=== PATIENT | male | born 1970 | race Caucasian/White ===

== ENCOUNTER 2020-01-05 10:30 | Emergency (ER) | payer OTHER ==
[2020-01-05] MEDS ORDERED: HYDROcodone/APAP 5-325MG 1 EACH TAB PO STA (10:49)
[2020-01-05] MEDS ORDERED: KETOROLAC 60 MG/2 ML VIAL IM STA (10:49)
--- NOTE | 2020-01-05 10:53 | ED ---
Lower Extremity Injury HPI - General Chief Complaint: Extremity Injury, Lower Stated Complaint: Bilateral ankle pain Time Seen by Provider: 01/05/20 10:40 Source: patient, RN notes reviewed Mode of arrival: wheelchair Limitations: no limitations - History of Present Illness Initial Comments: 49-year-old male presents emergency Department with chief complaint of bilateral ankle pain. Patient states he has chronic left ankle pain. Patient states that yesterday was trying to break some pallet board would with his foot states that he felt a little bit pain but states he woke up with her ankles are swollen, painful. Patient denies any history of gout. Patient states that his ankles are tender with movement and palpation. No paresthesias. - Related Data Home Medications Medication Instructions Recorded Confirmed Lisinopril [Zestril] 10 mg PO DAILY 01/05/20 01/05/20 Omeprazole 20 mg PO BID 01/05/20 01/05/20 buPROPion HCL [Wellbutrin SR] 100 mg PO DAILY 01/05/20 01/05/20 hydrOXYzine PAMOATE 25 mg PO Q8H PRN 01/05/20 01/05/20 Allergies Allergy/AdvReac Type Severity Reaction Status Date / Time bee venom protein (honey bee) Allergy Swelling Verified 01/05/20 11:07 codeine AdvReac Nausea & Verified 01/05/20 11:07 Vomiting Review of Systems ROS Statement: Those systems with pertinent positive or pertinent negative responses have been documented in the HPI. ROS Other: All systems not noted in ROS Statement are negative. Past Medical History Past Medical History: COPD, GERD/Reflux, Hypertension, Liver Disease Additional Past Medical History / Comment(s): chronic left ankle and back pain, inguinal hernia, Hepatitis C, legally blind History of Any Multi-Drug Resistant Organisms: None Reported Past Surgical History: No Surgical Hx Reported Past Psychological History: Anxiety Smoking Status: Current every day smoker Past Alcohol Use History: Occasional Past Drug Use History: None Reported General Exam Limitations: no limitations General appearance: alert, in no apparent distress Head exam: Present: atraumatic, normocephalic, normal inspection Eye exam: Present: normal appearance, PERRL, EOMI. Absent: scleral icterus, conjunctival injection, periorbital swelling ENT exam: Present: normal exam, normal oropharynx, mucous membranes moist, TM's normal bilaterally Neck exam: Present: normal inspection, full ROM. Absent: tenderness, meningismus, lymphadenopathy Respiratory exam: Present: normal lung sounds bilaterally. Absent: respiratory distress, wheezes, rales, rhonchi, stridor Cardiovascular Exam: Present: regular rate, normal rhythm, normal heart sounds. Absent: systolic murmur, diastolic murmur, rubs, gallop, clicks Extremities exam: Present: other (Bilateral ankle swelling noted, tenderness with palpation bilaterally right greater then left pedal pulses are equal bilaterally there is no pain proximal or distal to his left or right ankle) Neurological exam: Present: alert, oriented X3 Skin exam: Present: warm, dry, intact, normal color. Absent: rash Course Vital Signs 01/05/20 10:31 Temperature 98.4 F Pulse Rate 75 Respiratory 18 Rate Blood Pressure 138/78 O2 Sat by Pulse 98 Oximetry Medical Decision Making - Medical Decision Making X-rays were reviewed which shows no acute osseous lesion there are some spurring, degenerative changes and moderate swelling noted symptoms related to ankle sprain discussed possibly ago. Patient will be started on anti- inflammatories. Patient advised to rest, ice and elevate will follow-up with orthopedics if no improvement. Disposition Clinical Impression: Right ankle sprain, Swelling of both ankles Disposition: HOME SELF-CARE Condition: Stable Instructions (If sedation given, give patient instructions): Ankle Sprain (ED) Additional Instructions: Please return to the Emergency Department if symptoms worsen or any other concerns. Is patient prescribed a controlled substance at d/c from ED?: No Referrals: Nonstaff,Physician [Primary Care Provider] - 1-2 days Sean Swanson DO [Doctor of Osteopathic Medicine] - 1-2 days Time of Disposition: 11:32
--- NOTE | 2020-01-05 11:27 | XR ---
EXAMINATION TYPE: XR ankle complete bilateral, 3 views each DATE OF EXAM: 01/05/2020 Comparison: None Clinical History: 49-year-old male bilateral swelling, pain Findings: Right: Incidental distal tibial metaphyseal bone island. There is circumferential soft tissue swelling at th e ankle. Ankle mortise is congruent with preservation of the distal tibiofibular overlap. Talar dome is intact. No acute fracture, subluxation, or dislocation. Smooth delineation to the Achilles tendon. Left: Circumferential soft tissue swelling. Subtalar joint is aligned. Minimal inferior spurring from the l ateral malleolus. Ankle mortise is congruent. Talar dome appears intact. No acute fracture, subluxati on, or dislocation. Impression: Circumferential soft tissue swelling of both ankles. Minimal inferior spurring of the lateral malleol us. No acute osseous abnormality seen.
[2020-01-05] MEDS ORDERED: traMADol 50 MG STARTER PACK 3 TAB BTL PO STA (11:33)
[2020-01-06 10:04] VITALS: BP 151/84; PULSE 75; RESP 20; TEMP 98.4
== END 2020-01-05 11:50 | disposition home or self-care (01) ==
LOC: EC 10:30
DX: S93.401A Sprain of unspecified ligament of right ankle, initial encounter (principal); M19.072 Primary osteoarthritis, left ankle and foot; M19.071 Primary osteoarthritis, right ankle and foot; F41.9 Anxiety disorder, unspecified; K21.9 Gastro-esophageal reflux disease without esophagitis; I10 Essential (primary) hypertension; H54.8 Legal blindness, as defined in USA; F17.200 Nicotine dependence, unspecified, uncomplicated; Z79.899 Other long term (current) drug therapy; Z91.030 Bee allergy status; Z88.5 Allergy status to narcotic agent; X50.0XXA Overexertion from strenuous movement or load, initial encounter; X50.9XXA Other and unspecified overexertion or strenuous movements or postures, initial encounter; Y93.89 Activity, other specified
CPT/HCPCS: 96372; 99283

== ENCOUNTER 2020-01-19 17:55 | Emergency (ER) | payer OTHER ==
[2020-01-19 18:23] VITALS: TEMP 98.2
[2020-01-19] MEDS ORDERED: KETOROLAC 30 MG/ML 1 ML VIAL IM STA (19:30)
[2020-01-19] MEDS ORDERED: HYDROcodone/APAP 5-325MG 1 EACH TAB PO STA (19:30)
--- NOTE | 2020-01-19 20:05 | ED ---
Fall HPI - General Chief Complaint: Fall Stated Complaint: fall, back injury Time Seen by Provider: 01/19/20 19:02 Source: patient Mode of arrival: wheelchair - History of Present Illness Initial Comments: 49-year-old male patient presents to the emergency department for evaluation of back pain after experiencing a fall yesterday. Patient states he's been having chronic pain to both ankles. Patient states that he has been evaluated for the ankle pain and is supposed to follow-up with orthopedic surgeon but he has not yet done so. Patient states yesterday he felt like his ankles gave out he fell backward striking his back on the floor. Denies hitting his head or losing consciousness. States he is having mid back pain and low back pain. Denies any radiation of the pain down his legs. Denies saddle anesthesia or loss of bowel or bladder control. Patient denies fever or chills. Denies any redness or swelling to the ankles currently. He denies using any assistive devices for ambulation. Denies taking any medication for pain. Patient did recently moved to the area from [place] does not have a primary care physician. Patient denies any recent rash, cough, shortness of breath, chest pain, abdominal pain, nausea, vomiting, diarrhea, constipation, dizziness, weakness, hematuria, dysuria, urinary urgency, urinary frequency, headache, visual changes, or any other complaints. - Related Data Home Medications Medication Instructions Recorded Confirmed Omeprazole 20 mg PO BID 01/05/20 01/19/20 buPROPion HCL [Wellbutrin SR] 100 mg PO DAILY 01/05/20 01/19/20 lisinopriL [Zestril] 10 mg PO DAILY 01/05/20 01/19/20 Ibuprofen [Motrin] 800 mg PO Q8H PRN 01/19/20 01/19/20 Previous Rx's Medication Instructions Recorded Cyclobenzaprine [Flexeril] 10 mg PO TID #15 tab 01/19/20 Hydrocodone/Acetaminophen [[place] 1 tab PO Q6HR PRN #12 tab 01/19/20 5-325] Ibuprofen [Motrin] 600 mg PO Q8HR PRN #30 tab 01/19/20 Allergies Allergy/AdvReac Type Severity Reaction Status Date / Time bee venom protein (honey bee) Allergy Swelling Verified 01/19/20 20:06 codeine AdvReac Nausea & Verified 01/19/20 20:06 Vomiting Review of Systems ROS Statement: Those systems with pertinent positive or pertinent negative responses have been documented in the HPI. ROS Other: All systems not noted in ROS Statement are negative. Past Medical History Past Medical History: COPD Additional Past Medical History / Comment(s): chronic ankle pain, chronic shoulder pain, chronic back pain History of Any Multi-Drug Resistant Organisms: None Reported Past Surgical History: No Surgical Hx Reported Past Psychological History: No Psychological Hx Reported Smoking Status: Current every day smoker Past Alcohol Use History: Occasional Past Drug Use History: None Reported General Exam Limitations: no limitations General appearance: alert, in no apparent distress, other (This is a well- developed, well-nourished adult male patient in no acute distress. Vital signs upon presentation are temperature 98.2F, pulse 67, respirations 20, blood pressure 122/80, pulse ox 99% on room air.) Eye exam: Present: normal appearance, PERRL, EOMI. Absent: scleral icterus, conjunctival injection, periorbital swelling ENT exam: Present: normal exam, normal oropharynx, mucous membranes moist Neck exam: Present: normal inspection, full ROM, other (Nontender, no step-off, no deformity to firm midline palpation of the posterior cervical spine. Full range of motion without pain or limitation.). Absent: tenderness, meningismus, lymphadenopathy Respiratory exam: Present: normal lung sounds bilaterally. Absent: respiratory distress, wheezes, rales, rhonchi, stridor Cardiovascular Exam: Present: regular rate, normal rhythm, normal heart sounds. Absent: systolic murmur, diastolic murmur, rubs, gallop, clicks GI/Abdominal exam: Present: soft, normal bowel sounds. Absent: distended, tenderness, guarding, rebound, rigid Extremities exam: Present: normal inspection, full ROM, normal capillary refill, other (There is tenderness over the medial ankle bilaterally. There is good neurovascular status, skin is pink, warm, dry. Cap refills less than 3 seconds. Pedal and posttibial pulses are 2+ and equal bilaterally). Absent: tenderness, pedal edema, joint swelling, calf tenderness Back exam: Present: normal inspection, vertebral tenderness (There is mid thoracic spinal tenderness, upper lumbar tenderness. No bony step-off or deformity noted to firm palpation of the midline thoracic and lumbar spines.) Neurological exam: Present: alert, oriented X3, CN II-XII intact Psychiatric exam: Present: normal affect, normal mood Skin exam: Present: warm, dry, intact, normal color. Absent: rash Course Vital Signs 01/19/20 01/19/20 18:19 21:22 Temperature 98.2 F 98.2 F Pulse Rate 67 84 Respiratory 20 19 Rate Blood Pressure 122/80 114/84 O2 Sat by Pulse 99 96 Oximetry Medical Decision Making - Medical Decision Making 49-year-old male patient presents to the emergency department today for evaluation of bilateral ankle pain and back pain. Patient states the ankles gave out yesterday and he fell backwards. Physical examination did reveal thoracic spinal tenderness, lumbosacral tenderness. Exam of the ankles was normal. Neurovascular status intact. Patient had no concerning symptoms for cauda equina. X-rays of the thoracic and lumbar spine were obtained and were negative. Patient's ankle pain is chronic and he does have a plan to follow-up with or so for this by canceled her last appointment. He'll be discharged with pain medication. He is instructed to follow-up with his primary care physician for recheck in 1-2 days. Return parameters were discussed in detail. He verbalizes understanding and agrees with this plan. - Radiology Data Radiology results: report reviewed, image reviewed 3 views of the thoracic spine are obtained. Report was reviewed in its enti rety. Impression by Dr. Jm Garza shows no acute process per 5 views of the lumbosacral spine are obtained. Report was reviewed in its entirety. Impression by Dr. Jm Garza shows no acute process Disposition Clinical Impression: Bilateral ankle pain, Contusion of back Disposition: HOME SELF-CARE Condition: Good Instructions (If sedation given, give patient instructions): Arthralgia (ED), Back Pain (ED) Additional Instructions: Take medications as directed. Positive primary care physician for recheck in 1- 2 days. Follow-up with orthopedics as soon as possible for further evaluation. Return to the emergency department immediately for any new, worsening, or concerning symptoms. Prescriptions: Cyclobenzaprine [Flexeril] 10 mg PO TID #15 tab Ibuprofen [Motrin] 600 mg PO Q8HR PRN #30 tab PRN Reason: Pain Hydrocodone/Acetaminophen [[place] 5-325] 1 tab PO Q6HR PRN #12 tab PRN Reason: Pain Is patient prescribed a controlled substance at d/c from ED?: No Referrals: None,Stated [Primary Care Provider] - 1-2 days Time of Disposition: 21:05
--- NOTE | 2020-01-19 20:46 | XR ---
PROCEDURE: XR thoracic spine complete - 3V DATE AND TIME: 01/19/2020 8:12 PM CLINICAL INDICATION: PHH; Fall/spinal tenderness TECHNIQUE: Department protocol COMPARISON: None FINDINGS: There is no fracture or malalignment. The soft tissues are unremarkable. IMPRESSION: NO ACUTE PROCESS.
--- NOTE | 2020-01-19 20:48 | XR ---
PROCEDURE: XR lumbosacral spine 5 views DATE AND TIME: 01/19/2020 8:12 PM CLINICAL INDICATION: Pain, Fall/spinal tenderness TECHNIQUE: Department protocol COMPARISON: None FINDINGS: There is no fracture or malalignment. Relatively mild facet and disc degenerative changes a re noted. The soft tissues are unremarkable. IMPRESSION: NO ACUTE PROCESS.
[2020-01-19 21:23] VITALS: BP 114/84; PULSE 84; RESP 19
== END 2020-01-19 21:22 | disposition home or self-care (01) ==
LOC: EC 17:55
DX: S30.0XXA Contusion of lower back and pelvis, initial encounter (principal); M25.571 Pain in right ankle and joints of right foot; M25.572 Pain in left ankle and joints of left foot; F17.200 Nicotine dependence, unspecified, uncomplicated; Z79.899 Other long term (current) drug therapy; Z88.5 Allergy status to narcotic agent; Z91.030 Bee allergy status; W19.XXXA Unspecified fall, initial encounter; Y92.009 Unspecified place in unspecified non-institutional (private) residence as the place of occurrence of the external cause
CPT/HCPCS: 72072; 72110; 99283; 96372; J1885

== ENCOUNTER 2020-06-28 10:26 | Emergency (ER) | payer OTHER ==
[2020-06-28 10:39] VITALS: RESP 18
--- NOTE | 2020-06-28 10:49 | ED ---
Upper Extremity HPI - General Chief Complaint: Extremity Injury, Upper Stated Complaint: Fall, R Shoulder Injury Time Seen by Provider: 06/28/20 10:39 Source: patient, RN notes reviewed Mode of arrival: ambulatory Limitations: no limitations - History of Present Illness Initial Comments: 50-year-old male presents emergency Department chief complaint of trip and fall. Patient states he fell and scratched on the concrete onto his right shoulder. Patient states that he is unable to move secondary to pain. Patient states that he hasn't tingling but has full movement of his hand, good strength. No head injury no loss consciousness no neck pain. Patient denies any other complaints. - Related Data Home Medications Medication Instructions Recorded Confirmed Omeprazole 20 mg PO BID 01/05/20 01/19/20 buPROPion HCL [Wellbutrin SR] 100 mg PO DAILY 01/05/20 01/19/20 lisinopriL [Zestril] 10 mg PO DAILY 01/05/20 01/19/20 Ibuprofen [Motrin] 800 mg PO Q8H PRN 01/19/20 01/19/20 Previous Rx's Medication Instructions Recorded Cyclobenzaprine [Flexeril] 10 mg PO TID #15 tab 01/19/20 Hydrocodone/Acetaminophen [[place] 1 tab PO Q6HR PRN #12 tab 01/19/20 5-325] Ibuprofen [Motrin] 600 mg PO Q8HR PRN #30 tab 01/19/20 traMADol HCl [Ultram] 50 mg PO Q6H PRN #12 tab 06/28/20 Allergies Allergy/AdvReac Type Severity Reaction Status Date / Time bee venom protein (honey bee) Allergy Swelling Verified 06/28/20 10:34 codeine AdvReac Nausea & Verified 06/28/20 10:34 Vomiting Review of Systems ROS Statement: Those systems with pertinent positive or pertinent negative responses have been documented in the HPI. ROS Other: All systems not noted in ROS Statement are negative. Past Medical History Past Medical History: COPD, Hyperlipidemia Additional Past Medical History / Comment(s): chronic ankle pain, chronic shoulder pain, chronic back pain History of Any Multi-Drug Resistant Organisms: None Reported Past Surgical History: No Surgical Hx Reported Past Psychological History: No Psychological Hx Reported Smoking Status: Current every day smoker Past Alcohol Use History: Daily Past Drug Use History: Marijuana General Exam Limitations: no limitations General appearance: alert, in no apparent distress Head exam: Present: atraumatic, normocephalic, normal inspection Eye exam: Present: normal appearance, PERRL, EOMI. Absent: scleral icterus, conjunctival injection, periorbital swelling ENT exam: Present: mucous membranes moist Neck exam: Present: normal inspection, full ROM. Absent: tenderness, meningismus, lymphadenopathy Respiratory exam: Present: normal lung sounds bilaterally. Absent: respiratory distress, wheezes, rales, rhonchi, stridor Cardiovascular Exam: Present: regular rate, normal rhythm, normal heart sounds. Absent: systolic murmur, diastolic murmur, rubs, gallop, clicks Extremities exam: Present: other (Right shoulder there is some elevation over the AC joint, there is pain with any sort of movement passive or active, test with palpation diffusely of the right shoulder no distal humeral tenderness) Back exam: Present: full ROM. Absent: tenderness, muscle spasm, paraspinal tenderness Course Vital Signs 06/28/20 10:34 Temperature 98.2 F Pulse Rate 80 Respiratory 18 Rate Blood Pressure 154/81 O2 Sat by Pulse 97 Oximetry Medical Decision Making - Medical Decision Making X-rays reviewed no significant abnormality. Patient is a right shoulder strain, concern for AC joint strain. Patient will be discharged with a sling and follow-up with orthopedics. Disposition Clinical Impression: Fall, Sprain of right shoulder, Acromioclavicular joint injury Disposition: HOME SELF-CARE Condition: Stable Instructions (If sedation given, give patient instructions): Acromioclavicular Separation (ED), Shoulder Sprain (ED) Additional Instructions: Please return to the Emergency Department if symptoms worsen or any other concerns. Prescriptions: traMADol HCl [Ultram] 50 mg PO Q6H PRN #12 tab PRN Reason: Pain Is patient prescribed a controlled substance at d/c from ED?: Yes When asked, does pt state using other controlled substances?: No If prescribed controlled substance>3 days was MAPS reviewed?: Prescribed <3 Days If opioid is for acute pain is fill amount 7 days or less?: Yes If Rx opioid, was Start Talking consent form obtained?: Yes Referrals: Nonstaff,Physician [Primary Care Provider] - 1-2 days Asael Wills DO [Doctor of Osteopathic Medicine] - 1-2 days Time of Disposition: 11:42
--- NOTE | 2020-06-28 11:30 | XR ---
EXAMINATION TYPE: XR shoulder complete RT DATE OF EXAM: 06/28/2020 COMPARISON: 11/15/1713 HISTORY: Pain, fall TECHNIQUE: Three-view right shoulder FINDINGS: No acute fracture or dislocation is evident. Acromial humeral space is normal. Acromioclavi cular junction is normal. Note is made of some subtle air within the joint space. IMPRESSION: 1. Normal three-view right shoulder. 2. MRI can be performed if additional evaluation for rotator cuff tear would be of benefit.
[2020-06-28] MEDS ORDERED: traMADol 50 MG STARTER PACK 3 TAB BTL PO STA (11:43)
[2020-06-28 11:57] VITALS: BP 147/70; PULSE 87; TEMP 98
== END 2020-06-28 11:57 | disposition home or self-care (01) ==
LOC: EC 10:26
DX: S43.51XA Sprain of right acromioclavicular joint, initial encounter (principal); F17.200 Nicotine dependence, unspecified, uncomplicated; Z88.5 Allergy status to narcotic agent; Z91.030 Bee allergy status; W01.0XXA Fall on same level from slipping, tripping and stumbling without subsequent striking against object, initial encounter; Y92.049 Unspecified place in boarding-house as the place of occurrence of the external cause
CPT/HCPCS: 99283

== ENCOUNTER → 2020-08-02 | Outpatient (CLI) | payer OTHER ==
--- NOTE | 2020-08-02 08:20 | US ---
EXAMINATION TYPE: US liver DATE OF EXAM: 08/02/2020 COMPARISON: NONE CLINICAL HISTORY: B18.2 Chronic viral hepatitis C. RUQ pain EXAM MEASUREMENTS: Liver Length: 17.4 cm Gallbladder Wall: 0.5 cm CBD: 0.5 cm Right Kidney: 10.9 x 5.0 x 4.8 cm Pancreas: wnl Liver: wnl Gallbladder: thickened wall, internal debris, contracted Evidence for sonographic Stewart's sign: YES CBD: wnl Right Kidney: wnl IMPRESSION: 1. No suspicious masses within the liver. 2. Sonographic Stewart's sign which can be associated with acute cholecystitis K clinical correlation recommended.
== END | disposition home or self-care (01) ==
LOC: RADUSWWP 07:50
PROVIDERS: ATTEND Internal Medicine Gastroenterology
DX: R93.3 Abnormal findings on diagnostic imaging of other parts of digestive tract (principal); B18.2 Chronic viral hepatitis C
CPT/HCPCS: 76705

== ENCOUNTER 2022-10-13 18:25 | Emergency (ER) | payer OTHER ==
--- NOTE | 2022-10-13 18:31 | ED ---
General Adult HPI - General Stated complaint: leg swelling Time Seen by Provider: 10/13/22 18:30 - History of Present Illness Initial comments: 52-year-old male presents to the emergency department with bilateral lower leg swelling. Vital signs stable upon initial evaluation. Patient eloped prior to completion of care and room assignment AGAINST MEDICAL ADVICE. - Related Data Home Medications Medication Instructions Recorded Confirmed No Known Home Medications 10/25/21 10/25/21 Allergies Allergy/AdvReac Type Severity Reaction Status Date / Time bee venom protein (honey bee) Allergy Swelling Verified 10/25/21 06:45 codeine AdvReac Nausea & Verified 10/25/21 06:45 Vomiting Review of Systems ROS Statement: Those systems with pertinent positive or pertinent negative responses have been documented in the HPI. ROS Other: All systems not noted in ROS Statement are negative. Past Medical History Past Medical History: COPD, Hyperlipidemia Additional Past Medical History / Comment(s): chronic ankle pain, chronic shoulder pain, chronic back pain History of Any Multi-Drug Resistant Organisms: None Reported Past Surgical History: No Surgical Hx Reported Past Anesthesia/Blood Transfusion Reactions: Unable to Obtain Additional Past Anesthesia/Blood Transfusion Reaction / Comment(s): Pt has never had surgery. Past Psychological History: No Psychological Hx Reported - Past Family History Father Family Medical History: No Reported History Additional Family Medical History / Comment(s): Father is healthy Mother Family Medical History: Cancer Additional Family Medical History / Comment(s): Mother of cancer. General Exam - General Exam Comments Initial Comments: Visual Physical Exam Vital signs reviewed General: Well-appearing, nontoxic, no acute distress. Head: Normocephalic, atraumatic Eyes: PERRLA, EOMI ENT: Airway patent Chest: Nonlabored breathing Skin: No visual rash, normal skin tone Neuro: Alert and oriented 3 Musculoskeletal: No gross abnormalities Course Vital Signs 10/13/22 18:41 Temperature 98.6 F Pulse Rate 86 Respiratory 18 Rate Blood Pressure 150/83 O2 Sat by Pulse 98 Oximetry Disposition Clinical Impression: Leg swelling Disposition: Left Against Medical Advice Condition: Undetermined Referrals: Sergei Samuel MD [Primary Care Provider] - 1-2 days Time of Disposition: 12:28
[2022-10-13 18:44] VITALS: BP 150/83; PULSE 86; RESP 18; TEMP 98.6
--- NOTE | 2022-10-13 19:23 | XR ---
EXAMINATION TYPE: XR chest 2V DATE OF EXAM: 10/13/2022 COMPARISON: 10/25/2021 INDICATION: Bilateral leg swelling TECHNIQUE: Frontal and lateral views of the chest are obtained. FINDINGS: The heart size is normal. The pulmonary vasculature is normal. There is a lobular right upper lobe density measuring 3.3 x 3.0 cm near the second anterior right rib and. Underlying mass may be present. Follow-up is recommended. Acute pulmonary process is not otherwise evident. No additional mass is identified.. IMPRESSION: 1. There may be a right upper lobe 3 cm mass. Additional workup for neoplasm is recommended.
== END 2022-10-13 19:43 | disposition left against medical advice (07) ==
LOC: EC 18:25
DX: M79.89 Other specified soft tissue disorders (principal); Z53.29 Procedure and treatment not carried out because of patient's decision for other reasons; Z88.6 Allergy status to analgesic agent; Z91.030 Bee allergy status
CPT/HCPCS: 71046; 99283

== ENCOUNTER 2022-11-08 09:37 | Emergency (ER) | payer OTHER ==
[2022-11-08 10:05] VITALS: TEMP 98.3
[2022-11-08] MEDS ORDERED: methylPREDNISolone SOD SUCCI 125 MG/2 ML VIAL IM ONE (10:34)
--- NOTE | 2022-11-08 10:35 | ED ---
Extremity Problem HPI - General Chief complaint: Extremity Problem,Nontraumatic Stated complaint: Leg pain Time Seen by Provider: 11/08/22 10:17 Source: patient, RN notes reviewed Mode of arrival: wheelchair Limitations: no limitations - History of Present Illness Initial comments: 52-year-old male presents emergency Department with multiple complaints. Primary complaint is leg swelling that happens with today but was waiting at nighttime. He notices increasing complains of his lower legs. He states the ache on the swallow. Patient has a chest pain or shortness of breath. Patient states he also has right shoulder and r low back pain which has been ongoing. He states he received a injection past which helped. Patient has a bowel complaining constant attention of services. 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 - Related Data Previous Rx's Medication Instructions Recorded predniSONE 50 mg PO DAILY #5 tab 11/08/22 Allergies Allergy/AdvReac Type Severity Reaction Status Date / Time bee venom protein (honey bee) Allergy Swelling Verified 11/08/22 10:05 codeine AdvReac Nausea & Verified 11/08/22 10:05 Vomiting Review of Systems ROS Statement: Those systems with pertinent positive or pertinent negative responses have been documented in the HPI. ROS Other: All systems not noted in ROS Statement are negative. Past Medical History Past Medical History: COPD, Hyperlipidemia Additional Past Medical History / Comment(s): chronic ankle pain, chronic shoulder pain, chronic back pain History of Any Multi-Drug Resistant Organisms: None Reported Past Surgical History: No Surgical Hx Reported Past Anesthesia/Blood Transfusion Reactions: Unable to Obtain Additional Past Anesthesia/Blood Transfusion Reaction / Comment(s): Pt has never had surgery. Past Psychological History: No Psychological Hx Reported Smoking Status: Current every day smoker Past Alcohol Use History: None Reported Past Drug Use History: None Reported - Past Family History Father Family Medical History: No Reported History Additional Family Medical History / Comment(s): Father is healthy Mother Family Medical History: Cancer Additional Family Medical History / Comment(s): Mother of cancer. General Exam Limitations: no limitations General appearance: alert, in no apparent distress Head exam: Present: atraumatic, normocephalic, normal inspection Neck exam: Present: normal inspection, full ROM. Absent: tenderness, meningismus, lymphadenopathy Respiratory exam: Present: normal lung sounds bilaterally. Absent: respiratory distress, wheezes, rales, rhonchi, stridor Cardiovascular Exam: Present: regular rate, normal rhythm, normal heart sounds. Absent: systolic murmur, diastolic murmur, rubs, gallop, clicks GI/Abdominal exam: Present: soft, normal bowel sounds. Absent: distended, tenderness, guarding, rebound, rigid Extremities exam: Present: other (Extremities mild swelling, varicose veins noted shoulder mild discomfort with range of motion resting tach rate) Back exam: Present: full ROM, tenderness Neurological exam: Present: alert, reflexes normal. Absent: motor sensory deficit Course Vital Signs 11/08/22 10:02 Temperature 98.3 F Pulse Rate 73 Respiratory 17 Rate Blood Pressure 135/83 O2 Sat by Pulse 97 Oximetry Medical Decision Making - Medical Decision Making Was pt. sent in by a medical professional or institution ([facility], DERMATOPATHOLOGIST, urgent care, hospital, or assisted...) When possible be specific @ -No Did you speak to anyone other than the patient for history (EMS, parent, family, police, friend...)? What history was obtained from this source @ -No Did you review nursing and triage notes (agree or disagree)? Why? @ -I reviewed and agree with nursing and triage notes Were old charts reviewed (outside hosp., previous admission, EMS record, old EKG, old radiological studies, urgent care reports/EKG's, assisted records)? Report findings @ -No old charts were reviewed Differential Diagnosis (chest pain, altered mental status, abdominal pain women, abdominal pain men, vaginal bleeding, weakness, fever, dyspnea, syncope, headache, dizziness, GI bleed, back pain, seizure, CVA, palpatations, mental health, musculoskeletal)? @ -Chronic pain, low back pain, shoulder pain, venous insufficiency, leg swelling EKG interpreted by me (3pts min.). @ -None X-rays interpreted by me (1pt min.). @ -None done CT interpreted by me (1pt min.). @ -None done U/S interpreted by me (1pt. min.). @ -None done What testing was considered but not performed or refused? (CT, X-rays, U/S, labs)? Why? @ -None What meds were considered but not given or refused? Why? @ -None Did you discuss the management of the patient with other professionals (professionals i.e. , PA, DERMATOPATHOLOGIST, lab, RT, psych nurse, high school social studies tutor, central office operator supervisor, teacher, loan servicing officer, case management coordinator)? Give summary @ -No Was smoking cessation discussed for >3mins.? @ -I discussed smoking cessation for greater than 3 minutes. The risk of smoking were discussed with the patient including but not limited to risks of cancer, stroke, coronary artery disease and COPD. Also discussed with patient were multiple methods of quitting smoking. Lastly we discussed the financial cost of smoking.o Was critical care preformed (if so, how long)? @ -No Were there social determinants of health that impacted care today? How? (Homelessness, low income, unemployed, alcoholism, drug addiction, transportation, low edu. Level, literacy, decrease access to med. care, snf, rehab)? @ -No Was there de-escalation of care discussed even if they declined (Discuss DNR or withdrawal of care, Hospice)? DNR status @ -No What co-morbidities impacted this encounter? (DM, HTN, Smoking, COPD, CAD, Cancer, CVA, ARF, Chemo, Hep., AIDS, mental health diagnosis, sleep apnea, morbid obesity)? @ -Chronic pain, smoking Was patient admitted / discharged? Hospital course, mention meds given and route, prescriptions, significant lab abnormalities, going to OR and other pertinent info. @ -Discharge patient mild edema from basis deficiency. Patient provided compression stockings. Patient has chronic joint pain. Follow-up with ortho pedics. Patient provided steroid is a helped in the past. Undiagnosed new problem with uncertain prognosis? @ -No Drug Therapy requiring intensive monitoring for toxicity (Heparin, Nitro, Insulin, Cardizem)? @ -No Were any procedures done? @ -no Diagnosis/symptom? @ -Chronic pain, venous insufficiency Acute, or Chronic, or Acute on Chronic? @ -Chronic, acute Uncomplicated (without systemic symptoms) or Complicated (systemic symptoms)? @ -Uncomplicated] Side effects of treatment? @ -No Exacerbation, Progression, or Severe Exacerbation? @ -No Poses a threat to life or bodily function? How? (Chest pain, [place], [place], pneumonia, PE, COPD, DKA, ARF, appy, cholecystitis, CVA, Diverticulitis, Homicidal, Suicidal, threat to staff... and all critical care pts) @ -No Disposition Clinical Impression: Venous insufficiency of both lower extremities, Chronic shoulder pain, Chronic back pain Disposition: HOME SELF-CARE Condition: Stable Instructions (If sedation given, give patient instructions): Venous Insufficiency (DC) Additional Instructions: Please return to the Emergency Department if symptoms worsen or any other concerns. Prescriptions: predniSONE 50 mg PO DAILY #5 tab Is patient prescribed a controlled substance at d/c from ED?: No Referrals: Shin Wisdom MD [REFERRING] - 1-2 days Kirit Abreu DO [Doctor of Osteopathic Medicine] - 1-2 days Asael Wills DO [Doctor of Osteopathic Medicine] - 1-2 days David Stewart MD [STAFF PHYSICIAN] - 1-2 days Time of Disposition: 10:34
[2022-11-08 10:51] VITALS: BP 134/78; PULSE 78; RESP 18
== END 2022-11-08 10:57 | disposition home or self-care (01) ==
LOC: EC 09:37
DX: M79.661 Pain in right lower leg (principal); M79.662 Pain in left lower leg; I87.2 Venous insufficiency (chronic) (peripheral); M25.511 Pain in right shoulder; M54.50 Low back pain, unspecified; G89.29 Other chronic pain; J44.9 Chronic obstructive pulmonary disease, unspecified; F17.200 Nicotine dependence, unspecified, uncomplicated; Z88.5 Allergy status to narcotic agent; Z91.030 Bee allergy status
CPT/HCPCS: 96372; 99283; J2930

== ENCOUNTER 2023-05-11 23:17 | Observation (INO) | payer OTHER ==
[2023-05-11] MEDS ORDERED: IBUPROFEN 600 MG TAB PO STA (23:58)
--- NOTE | 2023-05-11 23:59 | ED ---
General Adult HPI - General Chief complaint: Neck Pain/Injury Stated complaint: Chest Pain Time Seen by Provider: 05/11/23 23:18 Source: EMS Mode of arrival: EMS Limitations: no limitations - History of Present Illness Initial comments: This patient is a 53-year-old man who presents to have evaluation of right arm pain. He indicates the pain begins in the shoulder and radiates down the arm. He states that he is not sure if it was injured. The pain had come on between a month and 2 months ago. Patient states that now he is not able to move the arm or shoulder at all without pain. Patient has not noted fever or chills. No cough or dyspnea. -: month(s) Location: right, upper extremity Radiation: distal Quality: aching, sharp Consistency: constant Improves with: none Worsens with: movement Associated Symptoms: denies other symptoms Treatments Prior to Arrival: none - Related Data Home Medications Medication Instructions Recorded Confirmed No Known Home Medications 05/12/23 05/12/23 Allergies Allergy/AdvReac Type Severity Reaction Status Date / Time bee venom protein (honey bee) Allergy Swelling Verified 05/12/23 07:36 codeine AdvReac Mild Nausea & Verified 05/12/23 07:36 Vomiting Review of Systems ROS Statement: Those systems with pertinent positive or pertinent negative responses have been documented in the HPI. ROS Other: All systems not noted in ROS Statement are negative. Constitutional: Denies: fever, chills Respiratory: Denies: cough, dyspnea Cardiovascular: Denies: chest pain, palpitations, edema, syncope Gastrointestinal: Denies: abdominal pain, nausea, vomiting, diarrhea Genitourinary: Reports: testicular mass. Denies: dysuria, frequency, hematuria, testicular pain Musculoskeletal: Denies: back pain Skin: Denies: rash Neurological: Reports: weakness, paresthesias. Denies: headache, confusion Past Medical History Past Medical History: COPD, Hyperlipidemia Additional Past Medical History / Comment(s): chronic ankle pain, chronic shoulder pain, chronic back pain History of Any Multi-Drug Resistant Organisms: None Reported Past Surgical History: No Surgical Hx Reported Past Anesthesia/Blood Transfusion Reactions: Unable to Obtain Additional Past Anesthesia/Blood Transfusion Reaction / Comment(s): Pt has never had surgery. Past Psychological History: No Psychological Hx Reported Smoking Status: Current every day smoker Past Alcohol Use History: None Reported Past Drug Use History: None Reported - Past Family History Father Family Medical History: No Reported History Additional Family Medical History / Comment(s): Father is healthy Mother Family Medical History: Cancer Additional Family Medical History / Comment(s): Mother of cancer. General Exam General appearance: alert, in no apparent distress Head exam: Present: atraumatic, normocephalic Eye exam: Present: normal appearance. Absent: scleral icterus, conjunctival injection Neck exam: Present: normal inspection Respiratory exam: Present: normal lung sounds bilaterally. Absent: respiratory distress, wheezes, rales, rhonchi, stridor Cardiovascular Exam: Present: regular rate, normal rhythm, normal heart sounds. Absent: systolic murmur, diastolic murmur, rubs, gallop GI/Abdominal exam: Present: soft. Absent: distended, tenderness, guarding, rebound, rigid, mass exam: Present: other (Patient has approximately 1 cm soft, cystic type lesion to the hemiscrotum. No warmth or erythema. Minimal tenderness.) Extremities exam: Present: tenderness, normal capillary refill. Absent: full ROM, pedal edema, calf tenderness Right Shoulder Exam: Present: tenderness. Absent: full ROM, swelling, abrasion, laceration, ecchymosis, deformity, crepitus, dislocation, erythema Elbow exam: Present: normal inspection, full ROM. Absent: tenderness, swelling Forearm Wrist exam: Present: normal inspection, full ROM. Absent: tenderness, swelling Hand Wrist exam: Present: normal inspection, full ROM. Absent: tenderness, swelling Vascular: Present: normal capillary refill. Absent: vascular compromise, Pallo Back exam: Present: normal inspection. Absent: CVA tenderness (R), CVA tenderness (L) Neurological exam: Present: alert Skin exam: Present: warm, dry, intact, normal color. Absent: rash Course Vital Signs 05/11/23 05/12/23 05/12/23 23:35 00:33 02:16 Temperature Pulse Rate 82 75 73 Respiratory 17 18 16 Rate Blood Pressure 134/80 129/97 134/83 O2 Sat by Pulse 98 97 98 Oximetry 05/12/23 05/12/23 05:54 09:39 Temperature 98.4 F 98.2 F Pulse Rate 80 75 Respiratory 18 16 Rate Blood Pressure 157/84 156/91 O2 Sat by Pulse 96 94 L Oximetry EKG Findings - EKG Results: EKG: interpreted by ERMD, sinus rhythm (Rate 77 bpm), normal axis, normal ST/T - Blocks, Cornell, Hypertrophy, ST Abn: AV and intraventricular conduction: intraventricular conduction delay Medical Decision Making - Medical Decision Making The patient had chest x-ray which I interpreted to show approximately 6 cm right upper lung mass. The patient had computed tomography scan of the chest which I interpreted to show right upper lung mass. Was pt. sent in by a medical professional or institution (, [facility], [facility]NAGER CL[facility]IC, urgent care, hospital, or prison...) When possible be specific @ -[No] Did you speak to anyone other than the patient for history (EMS, parent, family, police, friend...)? What history was obtained from this source @ -[No] Did you review nursing and triage notes (agree or disagree)? Why? @ -[I reviewed and agree with nursing and triage notes] Were old charts reviewed (outside hosp., previous admission, EMS record, old EKG, old radiological studies, urgent care reports/EKG's, prison records)? Report findings @ -[No old charts were reviewed] Differential Diagnosis (chest pain, altered mental status, abdominal pain women, abdominal pain men, vaginal bleeding, weakness, fever, dyspnea, syncope, headache, dizziness, GI bleed, back pain, seizure, CVA, palpatations, mental health, musculoskeletal)? @ -[Differential Chest Pain: Stable Angina, Unstable Angina, STEMI, NSTEMI Aortic Dissection, Pneumothorax, Musculoskeletal, Esophageal Spasm GERD, malignancy, pneumonia, pulmonary embolism this is not meant to be an all-inclusive list. EKG interpreted by me (3pts min.). @ -[As above] X-rays interpreted by me (1pt min.). @ -[I interpreted as above CT interpreted by me (1pt min.). @ -[I interpreted as above U/S interpreted by me (1pt. min.). @ -[None done] What testing was considered but not performed or refused? (CT, X-rays, U/S, labs)? Why? @ -[None] What meds were considered but not given or refused? Why? @ -[None] Did you discuss the management of the patient with other professionals (professionals i.e. , [facility], [facility]NAGER CLIN[facility], lab, RT, psych nurse, manager social work, oil burner servicer and installer, teacher, financial aids officer, transplant case manager)? Give summary @ -[Case discussed with admitting physician Was smoking cessation discussed for >3mins.? @ -[No] Was critical care preformed (if so, how long)? @ -[No] Were there social determinants of health that impacted care today? How? (Homelessness, low income, unemployed, alcoholism, drug addiction, transportation, low edu. Level, literacy, decrease access to med. care, shelter, rehab)? @ -[No] Was there de-escalation of care discussed even if they declined (Discuss DNR or withdrawal of care, Hospice)? DNR status @ -[No] What co-morbidities impacted this encounter? (DM, HTN, Smoking, COPD, CAD, Cancer, CVA, ARF, Chemo, Hep., AIDS, mental health diagnosis, sleep apnea, morbid obesity)? @ -[None] Was patient admitted / discharged? Hospital course, mention meds given and route, prescriptions, significant lab abnormalities, going to OR and other pertinent info. @ -[Patient is a 53-year-old man here to have evaluation for right shoulder pain. He is found to have moderately sized right upper lung mass that appears to have admission to the chest wall. Patient will be admitted to have pulmonology and oncology evaluation for suspected malignancy. Patient covered with benzodiazepine for possible alcohol withdrawal Undiagnosed new problem with uncertain prognosis? @ -[No] Drug Therapy requiring intensive monitoring for toxicity (Heparin, Nitro, Insulin, Cardizem)? @ -[No] Were any procedures done? @ -[No] Diagnosis/symptom? @ -[Right upper lung mass, Alcohol intoxication Acute, or Chronic, or Acute on Chronic? @ -[Acute Uncomplicated (without systemic symptoms) or Complicated (systemic symptoms)? @ -[Complicated by right shoulder/arm pain Side effects of treatment? @ -[No] Exacerbation, Progression, or Severe Exacerbation? @ -[No] Poses a threat to life or bodily function? How? (Chest pain, [place], [place], pneumonia, PE, COPD, DKA, ARF, appy, cholecystitis, CVA, Diverticulitis, Homicidal, Suici joe, threat to staff... and all critical care pts) @ -[Yes untreated lung malignancy is likely starting condition - Lab Data Result diagrams: 05/15/23 06:49 05/15/23 06:49 Lab Results 05/12/23 05/12/23 05/12/23 Range/Units 00:19 00:19 00:19 WBC 11.7 H (3.8-10.6) k/uL RBC 3.71 L (4.30-5.90) m/uL Hgb 9.8 L (13.0-17.5) gm/dL Hct 30.0 L (39.0-53.0) % MCV 80.8 (80.0-100.0) fL MCH 26.4 (25.0-35.0) pg MCHC 32.7 (31.0-37.0) g/dL RDW 17.5 H (11.5-15.5) % Plt Count 203 (150-450) k/uL MPV 8.1 Neutrophils % 66 % Lymphocytes % 17 % Monocytes % 6 % Eosinophils % 10 % Basophils % 0 % Neutrophils # 7.7 (1.3-7.7) k/uL Lymphocytes # 2.0 (1.0-4.8) k/uL Monocytes # 0.6 (0-1.0) k/uL Eosinophils # 1.2 H (0-0.7) k/uL Basophils # 0.0 (0-0.2) k/uL Anisocytosis Slight Microcytosis Slight PT 13.4 H (10.0-12.5) sec INR 1.3 H (<1.2) APTT 26.6 (22.0-30.0) sec Sodium (137-145) mmol/L Potassium (3.5-5.1) mmol/L Chloride (98-107) mmol/L Carbon Dioxide (22-30) mmol/L Anion Gap mmol/L BUN (9-20) mg/dL Creatinine (0.66-1.25) mg/dL Est GFR (CKD-EPI)AfAm (>60 ml/min/1.73 sqM) Est GFR (CKD-EPI)NonAf (>60 ml/min/1.73 sqM) Glucose (74-99) mg/dL Calcium (8.4-10.2) mg/dL Magnesium (1.6-2.3) mg/dL Total Bilirubin (0.2-1.3) mg/dL AST (17-59) U/L ALT (4-49) U/L Alkaline Phosphatase (38-126) U/L Troponin I (0.000-0.034) ng/mL Total Protein (6.3-8.2) g/dL Albumin (3.5-5.0) g/dL Urine Color Colorless Urine Appearance Clear (Clear) Urine pH 6.0 (5.0-8.0) Ur Specific [place] 1.020 (1.001-1.035) Urine Protein Negative (Negative) Urine Glucose (UA) Negative (Negative) Urine Ketones Negative (Negative) Urine Blood Negative (Negative) Urine Nitrite Negative (Negative) Urine Bilirubin Negative (Negative) Urine Urobilinogen 2.0 (<2.0) mg/dL Ur Leukocyte Esterase Negative (Negative) Serum Alcohol mg/dL 05/12/23 05/12/23 Range/Units 00:19 00:19 WBC (3.8-10.6) k/uL RBC (4.30-5.90) m/uL Hgb (13.0-17.5) gm/dL Hct (39.0-53.0) % MCV (80.0-100.0) fL MCH (25.0-35.0) pg MCHC (31.0-37.0) g/dL RDW (11.5-15.5) % Plt Count (150-450) k/uL MPV Neutrophils % % Lymphocytes % % Monocytes % % Eosinophils % % Basophils % % Neutrophils # (1.3-7.7) k/uL Lymphocytes # (1.0-4.8) k/uL Monocytes # (0-1.0) k/uL Eosinophils # (0-0.7) k/uL Basophils # (0-0.2) k/uL Anisocytosis Microcytosis PT (10.0-12.5) sec INR (<1.2) APTT (22.0-30.0) sec Sodium 134 L (137-145) mmol/L Potassium 3.8 (3.5-5.1) mmol/L Chloride 102 (98-107) mmol/L Carbon Dioxide 24 (22-30) mmol/L Anion Gap 8 mmol/L BUN 6 L (9-20) mg/dL Creatinine 0.39 L (0.66-1.25) mg/dL Est GFR (CKD-EPI)AfAm >90 (>60 ml/min/1.73 sqM) Est GFR (CKD-EPI)NonAf >90 (>60 ml/min/1.73 sqM) Glucose 89 (74-99) mg/dL Calcium 7.9 L (8.4-10.2) mg/dL Magnesium 1.6 (1.6-2.3) mg/dL Total Bilirubin 0.8 (0.2-1.3) mg/dL AST 131 H (17-59) U/L ALT 42 (4-49) U/L Alkaline Phosphatase 139 H (38-126) U/L Troponin I <0.012 (0.000-0.034) ng/mL Total Protein 6.8 (6.3-8.2) g/dL Albumin 3.2 L (3.5-5.0) g/dL Urine Color Urine Appearance (Clear) Urine pH (5.0-8.0) Ur Specific [place] (1.001-1.035) Urine Protein (Negative) Urine Glucose (UA) (Negative) Urine Ketones (Negative) Urine Blood (Negative) Urine Nitrite (Negative) Urine Bilirubin (Negative) Urine Urobilinogen (<2.0) mg/dL Ur Leukocyte Esterase (Negative) Serum Alcohol 196 mg/dL Disposition Clinical Impression: Alcoholic intoxication, Intractable pain, Mass of right lung Disposition: ADMITTED IP TO THIS HOSP Condition: Fair Is patient prescribed a controlled substance at d/c from ED?: No
[2023-05-12 00:32] LABS: Anisocytosis Slight; Basophils % (A) 0 %; Eosinophils # (A) 1.2 k/uL (0-0.7); Eosinophils % (A) 10 %; HGB 9.8 gm/dL (13.0-17.5); Lymphocytes % (A) 17 %; MCH 26.4 pg (25.0-35.0); MCHC 32.7 g/dL (31.0-37.0); MCV 80.8 fL (80.0-100.0); Mean Platelet Volume 8.1; Microcytosis Slight; Monocytes # (A) 0.6 k/uL (0-1.0); Monocytes % (A) 6 %; Neutrophils # (A) 7.7 k/uL (1.3-7.7); Neutrophils % (A) 66 %; Platelet Count 203 k/uL (150-450); RBC 3.71 m/uL (4.30-5.90); RDW 17.5 % (11.5-15.5); WBC 11.7 k/uL (3.8-10.6)
[2023-05-12 00:46] LABS: ALT 42 U/L (4-49); African American GFR (CKD) >90 (>60 ml/min/1.73 sqM); Albumin 3.2 g/dL (3.5-5.0); Anion Gap 8 mmol/L; Blood Urea Nitrogen 6 mg/dL (9-20); Calcium 7.9 mg/dL (8.4-10.2); Carbon Dioxide 24 mmol/L (22-30); Chloride 102 mmol/L (98-107); Glucose 89 mg/dL (74-99); Non-African American GFR(CKD) >90 (>60 ml/min/1.73 sqM); Sodium 134 mmol/L (137-145); Total Bilirubin 0.8 mg/dL (0.2-1.3); Total Protein 6.8 g/dL (6.3-8.2)
[2023-05-12 01:01] LABS: INR 1.3 (<1.2)
[2023-05-12 01:02] LABS: Partial Thromboplastin Time 26.6 sec (22.0-30.0); Prothrombin Time 13.4 sec (10.0-12.5)
[2023-05-12 01:11] LABS: AST 131 U/L (17-59); Alkaline Phosphatase 139 U/L (38-126); Potassium 3.8 mmol/L (3.5-5.1)
[2023-05-12 01:12] LABS: Magnesium 1.6 mg/dL (1.6-2.3)
[2023-05-12 01:13] LABS: Alcohol 196 mg/dL
[2023-05-12] MEDS ORDERED: MORPHINE SULFATE 4 MG/ML SYRINGE IV STA (01:19)
[2023-05-12 02:27] LABS: Appearance,Urine Clear (Clear); Bilirubin,Urine Negative (Negative); Blood,Urine Negative (Negative); Color,Urine Colorless; Glucose,Urine (UA) Negative (Negative); Ketones,Urine Negative (Negative); Leukocyte Esterase,Urine Negative (Negative); Nitrite,Urine Negative (Negative); Protein,Urine Negative (Negative)
--- NOTE | 2023-05-12 02:27 | XR ---
EXAM: XR Chest, 2 Views CLINICAL HISTORY: ITS.REASON XR Reason: CHEST PAIN TECHNIQUE: Frontal and lateral views of the chest. COMPARISON: XR Chest dated 10/13/2022 FINDINGS: Lungs: Approximately 6 cm mass and surrounding opacity in the right upper lobe. Increased since the prior. Pleural space: Unremarkable. No pneumothorax. Heart: Unremarkable. No cardiomegaly. Mediastinum: Unremarkable. Bones/joints: Unremarkable. IMPRESSION: Approximately 6 cm mass and surrounding opacity in the right upper lobe. Increased since the prior. Differential diagnosis includes malignancy. Recommend further workup. <MYCVCSECTION> Communications: 05/12/23 02:36 Verify Receipt Verified receipt with [facility]; report going to Dr. Diez on 05/12 02:35 (-05:00)
--- NOTE | 2023-05-12 03:12 | CT ---
EXAM: CT Chest With Intravenous Contrast CLINICAL HISTORY: ITS.REASON CT Reason: CHEST AND SHOULDER PAIN TECHNIQUE: Axial computed tomography images of the chest with intravenous contrast. CTDI is 5.9 mGy and DLP is 287.6 mGy-cm. This CT exam was performed using one or more of the following dose reduction techniques: automated exposure control, adjustment of the mA and/or kV according to patient size, and/or use of iterative reconstruction technique. COMPARISON: Chest x-ray today FINDINGS: Lungs: Unremarkable. No mass. No consolidation. Pleural space: Unremarkable. No pneumothorax. No significant effusion. Heart: Unremarkable. No cardiomegaly. No significant pericardial effusion. No significant coronary artery calcifications. Mediastinum: 7 x 7 x 7 cm lobular mildly heterogeneous mass in the right upper lobe with some cavitation. Extends lateral to the chest wall between the right first and second ribs. Medially, the mass extends to the mediastinum or contiguous with adenopathy. Attenuation of the adjacent right upper lobe bronchus and pulmonary arteries. Bones/joints: Degenerative changes of the spine. Slight irregularity of the left fourth and fifth anterolateral ribs. Series 204 images 108, 109. No acute fracture. No dislocation. Soft tissues: See above. Vasculature: See above. No thoracic aortic aneurysm. Lymph nodes: See above. Liver: Nodular liver contour and hepatomegaly, partially visualized. Likely cirrhosis. IMPRESSION: 1. 7 x 7 x 7 cm lobular mildly heterogeneous mass in the right upper lobe with some cavitation. Extends lateral to the chest wall between the right first and second ribs. Medially, the mass extends to the mediastinum or contiguous with adenopathy. Findings most worrisome for malignancy. Differential diagnosis includes tuberculosis. 2. Nodular liver contour and hepatomegaly, partially visualized. Likely cirrhosis. 3. Slight irregularity of the left fourth and fifth anterolateral ribs. Series 204 images 108, 109. Underlying lesions not excluded. <MYCVCSECTION> Communications: 05/12/23 03:16 Verify Receipt Verified receipt with [facility]; report going to Dr. Diez on 05/12 03:16 (-05:00)
--- NOTE | 2023-05-12 03:19 | US ---
EXAM: US Scrotum CLINICAL HISTORY: ITS.REASON US Reason: scrotal pain/mass Male, 53 years old with history of scrotal pain/mass; Pt states there is a lump on the right side of the scrotum. Has been there 1 year but has gotten bigger and is now causing some pressure TECHNIQUE: Real-time ultrasound of the scrotum with color Doppler and image documentation. COMPARISON: No relevant prior studies available. FINDINGS: Right testicle: The right testicle measures 4.2 x 2.7 x 1.6 cm with a volume of 12.9 ml. No evidence of right testicular mass. No torsion. Left testicle: The left testicle measures 4.2 x 2.7 x 1.9 cm with a volume of 15.3 ml. 0.7 cm cyst in the inferior portion of the left testicle. No torsion. Epididymides: Right epididymis not well visualized. Left epididymis appears normal. Scrotum: Moderate right hydrocele. Bilateral varicoceles greater on the right side. IMPRESSION: 1. No evidence of testicular torsion. 2. No evidence of right testicular mass. 3. Bilateral varicoceles greater on the right side. 4. Moderate right hydrocele. 5. 0.7 cm left testicular cyst.
[2023-05-12] MEDS ORDERED: HYDROmorphone 0.5 MG/0.5 ML SYRINGE IVP STA (05:19)
[2023-05-12] MEDS ORDERED: NALOXONE 0.4 MG/ML 1 ML VIAL IV PRN (06:08)
[2023-05-12] MEDS ORDERED: ACETAMINOPHEN TAB 325 MG TAB PO PRN (06:45)
[2023-05-12] MEDS ORDERED: ONDANSETRON 4 MG/2 ML VIAL IVP PRN (06:45)
[2023-05-12] MEDS ORDERED: chlordiazePOXIDE 25 MG CAP PO PRN (06:48)
[2023-05-12] MEDS ORDERED: LORazepam 2 MG/ML INJ IV PRN ×2 (06:48)
[2023-05-12] MEDS ORDERED: LORazepam 1 MG TAB PO PRN (06:48)
[2023-05-12] MEDS: FAMOTIDINE 20 MG TAB PO SCH ×2 (08:08→20:17)
[2023-05-12] MEDS: THIAMINE 100 MG TAB PO SCH (08:08)
[2023-05-12] MEDS: HYDROmorphone 0.5 MG/0.5 ML SYRINGE IVP PRN ×4 (08:46→23:27)
[2023-05-12] MEDS: LORazepam 2 MG/ML INJ IV PRN (08:46)
--- NOTE | 2023-05-12 11:58 | P.CNPUL ---
History of Present Illness Consult date: 05/12/23 Reason for consult: lung mass, abnormal CXR/CT History of present illness: This is a 53-year-old male patient, a chronic smoker, presented emergency department because of right shoulder and arm pain. The pain is extending from his right posterior shoulder and moves anteriorly to his anterior upper chest area. The pain is constant and gradually got worse over the past 2-3 months. He has chronic cough and congestion and exertional dyspnea in addition. A chest x-ray was done on the time of admission showed a 6 cm mass in the right upper l obe. Based on that, the patient was given a CT can of the chest that showed a 7 cm x 7 cm lobulated heterogeneous mass in the right upper lobe with some cavitation. This mass was extending into the lateral chest wall between the right first and second ribs. Medially, the mass is extending over into the mediastinum and there is also right suprahilar lymphadenopathy. There is also nodular liver contour and hepatomegaly. This is likely presenting cirrhosis. There is also slight irregularities of the left fourth and fifth anterolateral ribs. No hemoptysis. The daughter describes 11.7 with a hemoglobin of 9.8. BUN is at 6 with a creatinine of 0.39 and a sodium level is at 134 and a potas sium level of 3.8. Serum alcohol level at time of admission was 196. UA is negative. The patient is known to have history of alcoholism and he drinks alcohol on a daily basis. Is known to have COPD. Is a chronic smoker. His previous reduction is also screen positive for marijuana. Review of Systems Constitutional: Reports fatigue, Reports weakness Eyes: denies as per HPI, denies blurred vision, denies bulging eye, denies decr eased vision, denies diplopia, denies discharge, denies dry eye, denies irritation, denies itching, denies pain, denies photophobia, denies loss of peripheral vision, denies loss of vision, denies tunnel vision/blind spots Ears: deny: decreased hearing, ear discharge, earache, tinnitus Ears, nose, mouth and throat: Reports as per HPI Breasts: absent: as per HPI, gynecomastia Cardiovascular: Reports decreased exercise tolerance, Reports dyspnea on exertion Respiratory: Reports cough, Reports dyspnea Gastrointestinal: Reports as per HPI Genitourinary: Reports as per HPI Musculoskeletal: Reports hot joints, Reports shooting arm pain Musculoskeletal: absent: ankle pain, ankle stiffness, ankle swelling Integumentary: Reports as per HPI Neurological: Reports as per HPI Psychiatric: Reports as per HPI Endocrine: Reports as per HPI, Reports fatigue Hematologic/Lymphatic: Reports as per HPI Allergic/Immunologic: Reports as per HPI Past Medical History Past Medical History: COPD, Hyperlipidemia Additional Past Medical History / Comment(s): chronic ankle pain, chronic shoulder pain, chronic back pain History of Any Multi-Drug Resistant Organisms: None Reported Past Surgical History: No Surgical Hx Reported Past Anesthesia/Blood Transfusion Reactions: Unable to Obtain Additional Past Anesthesia/Blood Transfusion Reaction / Comment(s): Pt has never had surgery. Past Psychological History: No Psychological Hx Reported Smoking Status: Current every day smoker Past Alcohol Use History: None Reported Past Drug Use History: None Reported - Past Family History Father Family Medical History: No Reported History Additional Family Medical History / Comment(s): Father is healthy Mother Family Medical History: Cancer Additional Family Medical History / Comment(s): Mother of cancer. Medications and Allergies Home Medications Medication Instructions Recorded Confirmed Type No Known Home Medications 05/12/23 05/12/23 History Allergies Allergy/AdvReac Type Severity Reaction Status Date / Time bee venom protein (honey bee) Allergy Swelling Verified 05/12/23 07:36 codeine AdvReac Mild Nausea & Verified 05/12/23 07:36 Vomiting Physical Exam Vitals: Vital Signs Temp Pulse Resp BP Pulse Ox 05/12/23 09:39 98.2 F 75 16 156/91 94 L 05/12/23 05:54 98.4 F 80 18 157/84 96 05/12/23 02:16 73 16 134/83 98 05/12/23 00:33 75 18 129/97 97 05/11/23 23:35 82 17 134/80 98 Intake and Output 05/11/23 05/12/23 05/12/23 22:59 06:59 14:59 Other: Weight 52.163 kg General: Nontoxic, no distress and appears stated age. Disheveled appearance. Poor hygienic condition. His body mass index is 21 Derm: Skin warm and dry, normal coloration for ethnicity. Head: Atraumatic, normocephalic and symmetric. Eyes: EOMs intact, no lid lag, and anicteric sclera Mouth: no lip lesions, mucus membranes moist Cardiovascular: regular rate and rhythm with normal S1S2, no murmur, positive posterior tibial pulses bilaterally, and cap refill < 2 seconds. Lungs: Respirations even, regular, and unlabored on room air. Lungs CTA bilaterally, no rhonchi, no rales, no wheezing, and no accessory muscle usage. Coarse cough present upon assessment. Abdominal: soft, nontender to palpation, no guarding, no appreciable organomegaly Ext: ROM intact. No gross muscle atrophy, no edema, no contractures Neuro: Speech clear, face symmetrical and CN II-XII grossly intact with no noted focal neuro deficits Psych: Alert and oriented to person, place, time, and situation. Appropriate and pleasant affect. Results - Laboratory Findings CBC and BMP: 05/12/23 00:19 05/12/23 00:19 PT/INR, D-dimer PT 13.4 sec (10.0-12.5) H 05/12/23 00:19 INR 1.3 (<1.2) H 05/12/23 00:19 Abnormal lab findings: Abnormal Labs 05/12/23 05/12/23 05/12/23 00:19 00:19 00:19 WBC 11.7 H RBC 3.71 L Hgb 9.8 L Hct 30.0 L RDW 17.5 H Eosinophils # 1.2 H PT 13.4 H INR 1.3 H Sodium 134 L BUN 6 L Creatinine 0.39 L Calcium 7.9 L AST 131 H Alkaline Phosphatase 139 H Albumin 3.2 L - Diagnostic Findings Chest x-ray: image reviewed CT scan - chest: image reviewed Assessment and Plan Plan: Right upper lobe mass measuring 7 x 7 cm in size infiltrating the chest wall between the first and second on the right and extending into the mediastinum and there is evidence of a right suprahilar lymphadenopathy. Findings are highly suspicious for malignancy. Consider squamous cell carcinoma based on the presence of some central cavitation. Infection suggest tuberculosis infection is felt to be less likely. Note that his prior chest x-ray from 10/13/2022 showed a 3 cm mass in the right upper lobe and the patient failed to follow-up on the subnormality. Right shoulder/chest wall pain secondary to above COPD Hypertension Acid reflux History of chronic smoking History of alcoholism, the patient has a long history of alcoholism and alcohol abuse and he was in acute alcohol intoxication at time of admission. Normocytic anemia Previous hospitalization for alcohol withdrawal Plan Reviewed the CAT scan of the chest. The mass is extending to the chest wall is very much accessible by previous biopsy. Based on that, I'm going to put a consultation for interventional radiology for a fine-needle aspirate of the right upper lobe mass. No need for bronchoscopy at this point in time Continue Librium and Ativan if needed for any signs of delirium tremens pain control with Dilaudid 0.5 mg every 3 hours Oncology consultation if biopsy confirms malignancy
[2023-05-12] MEDS: PANTOPRAZOLE 40 MG/10 ML VIAL IVP SCH ×2 (13:57→20:17)
[2023-05-12] MEDS: HEPARIN SODIUM,PORCINE 5,000 UNIT/ML 1 ML VIAL SQ SCH ×2 (13:57→20:17)
[2023-05-12] MEDS: MORPHINE SULFATE 4 MG/ML SYRINGE IV PRN (13:57)
--- NOTE | 2023-05-12 22:58 | HP ---
HISTORY AND PHYSICAL CHIEF COMPLAINT: Right shoulder pain as well as EtOH withdrawal. HISTORY OF PRESENT ILLNESS: This is a 53-year-old gentleman with a past medical history of COPD and hyperlipidemia, who was complaining of right shoulder pain. The patient also had significant EtOH. The evaluation showed right upper lobe malignancy, which is probably infiltrate in the surrounding area is causing the pain. Otherwise, there is no history of any fever, rigor, or chills. PAST MEDICAL HISTORY: History of COPD and hyperlipidemia. Rest of history and chart are also reviewed. HOME MEDICATIONS: None. ALLERGIES: Bee venom. FAMILY HISTORY: No history of heart disease or strokes in the family. SOCIAL HISTORY: History of smoking and EtOH. REVIEW OF SYSTEMS: A 14-point review of systems is negative except as mentioned earlier. PHYSICAL EXAMINATION: VITAL SIGNS: Pulse is 75, blood pressure 156/91, respirations 16. HEENT: Conjunctivae normal. NECK: No jugular venous distention. CARDIOVASCULAR: S1, S2. RESPIRATIONS: Diminished at the bases. A few scattered rhonchi. ABDOMEN: Soft, nontender. NERVOUS SYSTEM: No focal deficits. SKIN: No ulcer, rash, or swelling. JOINTS: No active deforming arthropathy. LABORATORY DATA: Reviewed. ASSESSMENT: 1. Right upper lobe mass lesion, possibly malignancy with right shoulder pain, rule out Pancoast tumor. 2. EtOH withdrawal and acute delirium tremens. 3. Chronic obstructive pulmonary disease. 4. Hyperlipidemia. 5. Increased WBC. 6. Anemia, multifactorial. RECOMMENDATIONS AND DISCUSSION: This is a 53-year-old gentleman presented with multiple complex medical issues. We will monitor the patient closely. Symptomatic treatment of the pain and EtOH withdrawal symptoms. Dr. Kearns has been consulted. Interventional Radiology consultation for possible biopsy. Symptomatic treatment, pain management, DVT prophylaxis. See orders for further information. Discussed at length with the patient. Further recommendations to follow. MMODL / IJN: [id number] /
[2023-05-13] MEDS: HYDROmorphone 0.5 MG/0.5 ML SYRINGE IVP PRN ×5 (02:28→18:10)
[2023-05-13] MEDS: LORazepam 2 MG/ML INJ IV PRN (02:29)
[2023-05-13] MEDS: FAMOTIDINE 20 MG TAB PO SCH ×2 (07:58→20:44)
[2023-05-13] MEDS: HEPARIN SODIUM,PORCINE 5,000 UNIT/ML 1 ML VIAL SQ SCH ×2 (07:58→20:44)
[2023-05-13] MEDS: THIAMINE 100 MG TAB PO SCH (07:59)
[2023-05-13] MEDS: PANTOPRAZOLE 40 MG/10 ML VIAL IVP SCH ×2 (08:00→20:44)
--- NOTE | 2023-05-13 09:46 | XR ---
EXAMINATION TYPE: XR chest 1V portable DATE OF EXAM: 05/13/2023 COMPARISON: 05/12/2023 INDICATION: Post lung biopsy right upper lobe TECHNIQUE: Single frontal view of the chest is obtained. FINDINGS: The heart size is normal. The pulmonary vasculature is normal. There is opacification of the right upper lung field. No significant change in size is evident. No pn eumothorax is evident post bronchoscopy. IMPRESSION: 1. Persistent opacity right apex. 2. No pneumothorax post bronchoscopy.
--- NOTE | 2023-05-13 12:01 | CT ---
EXAMINATION TYPE: CT biopsy lung RT DATE OF EXAM: 05/13/2023 COMPARISON: 07/12/2022 HISTORY: right lung biopsy CT DLP: 1554 mGycm The procedure is discussed with the patient, the risks, complications, benefits and alternatives, wer e discussed and any questions were answered. Informed consent was obtained. The patient is placed p ventura on the CT table, prepped and draped in the usual sterile fashion. Utilizing a 18-gauge core biopsy needle access into the right upper lobe mass was achieved with a sin gle sample obtained. Pathology pending. All elements of maximal barrier and sterile technique were utilized. The patient remained stable throughout the procedure with no immediate postprocedural comp lication. IMPRESSION: 1. Successful CT guided fine needle aspiration of a right upper lobe lung mass
[2023-05-13 13:44] LABS: Basophils # (A) 0.14 X 10*3/uL (0.00-0.10); Basophils % (A) 1.2 %; Eosinophils # (A) 1.15 X 10*3/uL (0.04-0.35); Eosinophils % (A) 9.9 %; HCT 32.2 % (39.6-50.0); HGB 10.2 g/dL (13.0-17.0); Lymphocytes # (A) 2.11 X 10*3/uL (0.90-5.00); Lymphocytes % (A) 18.2 %; MCH 25.4 pg (27.0-32.0); MCHC 31.7 g/dL (32.0-37.0); MCV 80.3 FL (80.0-97.0); Mean Platelet Volume 10.2 FL (9.5-12.2); Monocytes % (A) 8.6 %; NRBC Per 100 WBC 0 X 10*3/uL (0.00-0.01); Neutrophils # (A) 7.11 X 10*3/uL (1.80-7.70); Neutrophils % (A) 61.5 %; Platelet Count 215 X 10*3/uL (140-440); RBC 4.01 X 10*6/uL (4.40-5.60); RDW 18.9 % (11.5-14.5); WBC 11.58 X 10*3/uL (4.50-10.00)
[2023-05-13 14:01] LABS: Blood Urea Nitrogen 7.5 mg/dL (9.0-27.0); Calcium 8.8 mg/dL (8.7-10.3); Carbon Dioxide 26.2 mmol/L (21.6-31.8); Chloride 98 mmol/L (96-109); Glucose 105 mg/dL (70-110); Potassium 4.3 mmol/L (3.5-5.5); Sodium 136 mmol/L (135-145)
[2023-05-13] MEDS ORDERED: HYDROcodone/APAP 5-325MG 1 EACH TAB PO PRN (14:11)
--- NOTE | 2023-05-13 14:19 | P.PN ---
Subjective Progress Note Date: 05/13/23 This is a 53-year-old male patient, a chronic smoker, presented emergency depar tme because of right shoulder and arm pain. The pain is extending from his right posterior shoulder and moves anteriorly to his anterior upper chest area. The pain is constant and gradually got worse over the past 2-3 months. He has chronic cough and congestion and exertional dyspnea in addition. A chest x-ray was done on the time of admission showed a 6 cm mass in the right upper lobe. Based on that, the patient was given a CT can of the chest that showed a 7 cm x 7 cm lobulated heterogeneous mass in the right upper lobe with some cavitation. This mass was extending into the lateral chest wall between the right first and second ribs. Medially, the mass is extending over into the mediastinum and there is also right suprahilar lymphadenopathy. There is also nodular liver contour and hepatomegaly. This is likely presenting cirrhosis. There is also slight irregularities of the left fourth and fifth anterolateral ribs. No hemoptysis. The daughter describes 11.7 with a hemoglobin of 9.8. BUN is at 6 with a creatinine of 0.39 and a sodium level is at 134 and a potassium level of 3.8. Serum alcohol level at time of admission was 196. UA is negative. The patient is known to have history of alcoholism and he drinks alcohol on a daily basis. Is known to have COPD. Is a chronic smoker. His previous reduction is also screen positive for marijuana. On 05/13/2023, the patient is stable. The patient would undergo a percutaneous biopsy of the right upper lobe mass with interventional radiology. White cell count 11.5, hemoglobin is at 10.2, BUN is at 7.5 with a creatinine of 0.5 and a sodium level is 136. The patient is hemodynamically stable and the patient is currently on room air oxygen with a pulse ox 94%. The patient is receiving pain control. He is currently on Dilaudid for pain control and [place] on a when necessary basis. Objective - Vital Signs Vital signs: Vital Signs Temp 98.2 F 05/13/23 09:48 Pulse 78 05/13/23 10:57 Resp 14 05/13/23 09:48 BP 150/90 05/13/23 10:57 Pulse Ox 92 L 05/13/23 10:57 FiO2 Intake & Output 05/12/23 05/13/23 05/13/23 18:59 06:59 18:59 Intake Total 600 Balance 600 Weight 52.163 kg Intake: Oral 600 Other: # Voids 2 - Exam General: Nontoxic, no distress and appears stated age. Disheveled appearance. Poor hygienic condition. His body mass index is 21 Derm: Skin warm and dry, normal coloration for ethnicity. Head: Atraumatic, normocephalic and symmetric. Eyes: EOMs intact, no lid lag, and anicteric sclera Mouth: no lip lesions, mucus membranes moist Cardiovascular: regular rate and rhythm with normal S1S2, no murmur, positive posterior tibial pulses bilaterally, and cap refill < 2 seconds. Lungs: Respirations even, regular, and unlabored on room air. Lungs CTA bilaterally, no rhonchi, no rales, no wheezing, and no accessory muscle usage. Coarse cough present upon assessment. Abdominal: soft, nontender to palpation, no guarding, no appreciable organomegaly Ext: ROM intact. No gross muscle atrophy, no edema, no contractures Neuro: Speech clear, face symmetrical and CN II-XII grossly intact with no noted focal neuro deficits Psych: Alert and oriented to person, place, time, and situation. Appropriate and pleasant affect. - Labs CBC & Chem 7: 05/13/23 07:03 05/13/23 07:03 Assessment and Plan Plan: Right upper lobe mass measuring 7 x 7 cm in size infiltrating the chest wall between the first and second on the right and extending into the mediastinum and there is evidence of a right suprahilar lymphadenopathy. Findings are highly suspicious for malignancy. Consider squamous cell carcinoma based on the presence of some central cavitation. Infection suggest tuberculosis infection is felt to be less likely. Note that his prior chest x-ray from 10/13/2022 showed a 3 cm mass in the right upper lobe and the patient failed to follow-up on the subnormality. Right shoulder/chest wall pain secondary to above COPD Hypertension Acid reflux History of chronic smoking History of alcoholism, the patient has a long history of alcoholism and alcohol abuse and he was in acute alcohol intoxication at time of admission. Normocytic anemia Previous hospitalization for alcohol withdrawal Plan Patient were completed biopsy of the right upper lobe mass, awaiting pathology Pain control Oncology consultation Continue Librium and Ativan if needed for any signs of delirium tremens pain control with Dilaudid 0.5 mg every 3 hours
[2023-05-13] MEDS: MORPHINE SULFATE 4 MG/ML SYRINGE IV PRN ×2 (14:42→20:44)
[2023-05-13] MEDS: cloNIDine HCL 0.1 MG TAB PO SCH ×2 (15:18→20:44)
--- NOTE | 2023-05-13 16:57 | P.CONS ---
History of Present Illness - Reason for Consult Consult date: 05/12/23 lung mass Requesting physician: Soha Marr - Chief Complaint arm pain - History of Present Illness Mister Montoya is a 49-year-old man Who does not follow routinely with a physician. He is a long history of smoking. He reports "for a while now" he has been having pain in his right shoulder, it radiates down the arm to his wrist, it can be tingling at times. He is also feeling pain in his right upper ribs, he is refusing to move his arms secondary to pain. This has been progressive which made him seek medical attention. Patient reports that he has been having night sweats that are drenching for "months". He reports epistaxis, mouth daily. He denies any weight loss, states he eats and drinks pretty well. No hemoptysis, unusual shortness of breath, new or unusual cough, abdominal pain or cramping, acute changes in bowel or bladder habits. CT of the chest revealed a 7 x 7 cm cavitated mass in the right upper lobe. It extends to the lateral chest wall, extends into the mediastinum, some lymphadenopathy is also noted. Liver is nodular and enlarged. Today's labs showing WBC 11.5, hemoglobin 10.2 MCH 25.4, platelets 215,000. PT/INR slightly elevated 13.4/1.3. Serum alcohol 196. Patient is status post biopsy with Pulmonary. Review of Systems 10 point review of systems is negative except as stated in HPI Past Medical History Past Medical History: COPD, Hyperlipidemia Additional Past Medical History / Comment(s): chronic ankle pain, chronic s houlder pain, chronic back pain History of Any Multi-Drug Resistant Organisms: None Reported Past Surgical History: No Surgical Hx Reported Past Anesthesia/Blood Transfusion Reactions: Unable to Obtain Additional Past Anesthesia/Blood Transfusion Reaction / Comm: Pt has never had surgery. Past Psychological History: No Psychological Hx Reported Additional Psychological History / Comment(s): Pt has a brother staying with him. He has a cane and a walker. He does not drive, he uses the bus system. Smoking Status: Current every day smoker Past Alcohol Use History: None Reported Additional Past Alcohol Use History / Comment(s): Pt started smoking in 1976 and is a ppd smoker. He drinks 10 tallboy beers and sometimes a couple of shots of liqour a day. Past Drug Use History: None Reported - Past Family History Father Family Medical History: No Reported History Additional Family Medical History / Comment(s): Father is healthy Mother Family Medical History: Cancer Additional Family Medical History / Comment(s): Mother of cancer. Medications and Allergies Home Medications Medication Instructions Recorded Confirmed Type No Known Home Medications 05/12/23 05/12/23 History Allergies Allergy/AdvReac Type Severity Reaction Status Date / Time bee venom protein (honey bee) Allergy Swelling Verified 05/12/23 07:36 codeine AdvReac Mild Nausea & Verified 05/12/23 07:36 Vomiting Physical Exam Vitals: Vital Signs Temp Pulse Pulse Resp BP BP Pulse Ox 05/12/23 13:59 98.3 F 71 17 163/87 92 L 05/12/23 13:32 98.3 F 71 17 163/87 92 L 05/12/23 13:18 98.2 F 74 16 151/79 96 05/12/23 09:39 98.2 F 75 16 156/91 94 L 05/12/23 05:54 98.4 F 80 18 157/84 96 05/12/23 02:16 73 16 134/83 98 05/12/23 00:33 75 18 129/97 97 05/11/23 23:35 82 17 134/80 98 Intake and Output 05/12/23 05/12/23 05/12/23 06:59 14:59 22:59 Other: Weight 52.163 kg 52.163 kg - Constitutional General appearance: average body habitus, cooperative, no acute distress - EENT Eyes: anicteric sclerae, EOMI ENT: hearing grossly normal, normal oropharynx - Neck Neck: no lymphadenopathy - Respiratory Respiratory: bilateral: diminished - Cardiovascular Rhythm: regular Heart sounds: normal: S1, S2 Abnormal Heart Sounds: no systolic murmur, no diastolic murmur, no rub, no S3 Gallop, no S4 Gallop, no click, no other leg Peripheral Edema: bilateral: None - Gastrointestinal General gastrointestinal: no absent bowel sounds, no decreased bowel sounds, no distended, no hepatomegaly, no hyperactive bowel sounds, normal bowel sounds, no organomegaly, no rigid, no scaphoid, soft, no splenomegaly, no tenderness, no umbilical hernia, no ventral hernia - Integumentary Integumentary: normal - Neurologic Neurologic: CNII-XII intact - Musculoskeletal Musculoskeletal: strength equal bilaterally - Psychiatric Psychiatric: A&O x's 3, appropriate affect, intact judgment & insight Results CBC & Chem 7: 05/13/23 07:03 05/13/23 07:03 Labs: Abnormal Lab Results - Last 24 Hours (Table) 05/12/23 05/12/23 05/12/23 Range/Units 00:19 00:19 00:19 WBC 11.7 H (3.8-10.6) k/uL RBC 3.71 L (4.30-5.90) m/uL Hgb 9.8 L (13.0-17.5) gm/dL Hct 30.0 L (39.0-53.0) % RDW 17.5 H (11.5-15.5) % Eosinophils # 1.2 H (0-0.7) k/uL PT 13.4 H (10.0-12.5) sec INR 1.3 H (<1.2) Sodium 134 L (137-145) mmol/L BUN 6 L (9-20) mg/dL Creatinine 0.39 L (0.66-1.25) mg/dL Calcium 7.9 L (8.4-10.2) mg/dL AST 131 H (17-59) U/L Alkaline Phosphatase 139 H (38-126) U/L Albumin 3.2 L (3.5-5.0) g/dL Chest x-ray: report reviewed CT scan - chest: report reviewed, image reviewed Assessment and Plan (1) Intractable pain Current Visit: Yes Status: Acute Priority: High Code(s): R52 - PAIN, UNSPECIFIED SNOMED Code(s): 93779307 (2) Mass of right lung Current Visit: Yes Status: Acute Priority: High Code(s): R91.8 - OTHER NONSPECIFIC ABNORMAL FINDING OF LUNG FIELD SNOMED Code(s): 230416800 Plan: Intractable pain, large right lung mass -7 cm lung mass right upper lobe. -Likely underlying cause of patient's right shoulder pain that is radiating down his arms -Patient is status post biopsy with Pulmonary, pathology pending -Pain medications ordered. These will need to be titrated. May have to consider steroids for inflammation. -Rad Onc already consulted Hypochromic anemia -Anemia workup ordered along with nutritional labs for patient's history of EtOH. -Transfers for hemoglobin less than 7 attests: I have seen and examined patient, performed H&P, developed impression and plan of care. Discussed with dictator. Agree with document ation, dictated as a scribe.
[2023-05-13 19:07] LABS: Reticulocyte % 2.2 % (0.5-2.0)
--- NOTE | 2023-05-14 00:01 | PN ---
PROGRESS NOTE DATE OF SERVICE: 05/12/2023 SUBJECTIVE: This is a 53-year-old gentleman, admitted with right apical tumor, possibly Pancoast syndrome, complaining of severe pain, shoulder pain, and upper arm pain. The patient had a lung biopsy today. The patient also had ETOH withdrawal and delirium tremens. Also, the patient will be closely monitored. Pain management is still scattered. The patient is still complaining of 10/10 pain in the right shoulder. PAST MEDICAL HISTORY: Reviewed. REVIEW OF SYSTEMS: A 14-point review is negative except as mentioned earlier. CURRENT MEDICATIONS: Reviewed include Dilaudid, Ativan. Dose and rest of medications reviewed. PHYSICAL EXAMINATION: VITAL SIGNS: Pulse 79, blood pressure 149/76, respirations 18. HEENT: Conjunctivae normal. NECK: No JVD. CARDIOVASCULAR: S1, S2. No murmurs. RESPIRATIONS: Breath sounds diminished at the bases. A few scattered rhonchi. ABDOMEN: Soft. NERVOUS SYSTEM: Nonfocal. LEGS: Movement is painful. LABORATORY DATA: Reviewed. ASSESSMENT: 1. Right upper lobe mass lesion with possible malignancy with right shoulder pain, possibly Pancoast syndrome. 2. EtOH withdrawal and acute delirium tremens. 3. Hypertension. 4. Chronic obstructive pulmonary disease. 5. Hyperlipidemia. 6. Increased WBC. 7. Anemia, multifactorial. RECOMMENDATIONS AND DISCUSSION: Recommend to continue current medications and continue symptomatic treatment. We will initiate clonidine, Pain Management. Consult with Oncology and Radiation Oncology. Prognosis guarded. Further recommendations to follow. See orders for further details. MMODL / IJN: [id number] /
[2023-05-14] MEDS: MORPHINE SULFATE 4 MG/ML SYRINGE IV PRN ×2 (02:45→11:23)
[2023-05-14 03:50] LABS: % Iron Saturation 5.28 (15.00-50.00)
[2023-05-14] MEDS: HYDROmorphone 0.5 MG/0.5 ML SYRINGE IVP PRN (06:43)
[2023-05-14] MEDS: PANTOPRAZOLE 40 MG/10 ML VIAL IVP SCH ×2 (08:20→21:18)
[2023-05-14] MEDS: THIAMINE 100 MG TAB PO SCH (10:53)
[2023-05-14] MEDS: cloNIDine HCL 0.1 MG TAB PO SCH ×2 (10:53→21:18)
[2023-05-14] MEDS: FAMOTIDINE 20 MG TAB PO SCH (10:53)
[2023-05-14] MEDS: HEPARIN SODIUM,PORCINE 5,000 UNIT/ML 1 ML VIAL SQ SCH ×2 (10:54→21:18)
[2023-05-14 13:19] LABS: Basophils # (A) 0.13 X 10*3/uL (0.00-0.10); Basophils % (A) 1.1 %; Eosinophils # (A) 1.31 X 10*3/uL (0.04-0.35); Eosinophils % (A) 10.7 %; HCT 31.4 % (39.6-50.0); HGB 9.9 g/dL (13.0-17.0); Lymphocytes % (A) 17.1 %; MCH 25.6 pg (27.0-32.0); MCHC 31.5 g/dL (32.0-37.0); MCV 81.1 FL (80.0-97.0); Mean Platelet Volume 9.8 FL (9.5-12.2); Monocytes # (A) 1.21 X 10*3/uL (0.20-1.00); Monocytes % (A) 9.9 %; NRBC Per 100 WBC 0 X 10*3/uL (0.00-0.01); Neutrophils # (A) 7.47 X 10*3/uL (1.80-7.70); Neutrophils % (A) 60.9 %; Platelet Count 229 X 10*3/uL (140-440); RBC 3.87 X 10*6/uL (4.40-5.60); RDW 18.8 % (11.5-14.5); WBC 12.26 X 10*3/uL (4.50-10.00)
[2023-05-14] MEDS: dexAMETHasone 4 MG TAB PO SCH ×3 (13:24→21:18)
[2023-05-14] MEDS: SODIUM FERRIC GLUCONAT-SUCROSE 125 MG in SODIUM CHLORIDE 0.9% 100 ML IVPB SCH (13:24)
[2023-05-14] MEDS: LIDOCAINE 5% PATCH TOPICAL SCH (13:25)
[2023-05-14] MEDS: KETOROLAC 15 MG/ML 1 ML VIAL IVP SCH ×3 (13:33→23:48)
[2023-05-14 13:49] LABS: BUN/Creat Ratio 20.75 Ratio (12.00-20.00); Blood Urea Nitrogen 8.3 mg/dL (9.0-27.0); Calcium 8.6 mg/dL (8.7-10.3); Carbon Dioxide 25.9 mmol/L (21.6-31.8); Chloride 97 mmol/L (96-109); Glucose 98 mg/dL (70-110); Potassium 4.4 mmol/L (3.5-5.5); Sodium 134 mmol/L (135-145)
[2023-05-14] MEDS ORDERED: HYDROcodone/APAP 5-325MG 1 EACH TAB PO PRN (13:51)
--- NOTE | 2023-05-14 14:10 | XR ---
EXAMINATION TYPE: XR chest 1V portable DATE OF EXAM: 05/14/2023 COMPARISON: 05/13/2023 INDICATION: Right lung mass TECHNIQUE: Single frontal view of the chest is obtained. FINDINGS: The heart size is normal. The pulmonary vasculature is normal. Right upper lobe mass is stable. Thorax is evident. IMPRESSION: 1. Stable right upper lobe mass
--- NOTE | 2023-05-14 15:09 | P.CONS ---
History of Present Illness - Reason for Consult Consult date: 05/14/23 Right upper lobe mass Requesting physician: Dejah Velez - Chief Complaint "My arm hurts" - History of Present Illness Mr. Montoya is a 53-year-old male with a right upper lobe mass with invasion of the chest wall in the setting of progressively worsening arm pain. The patient's history is notable for a subacute history of progressively worsening right arm pain. Due to such, he presented to the . CT chest on 05/12/2023 demonstrated a 7 cm right upper lobe mass with chest wall invasion between the first and second ribs and contiguous with mediastinal adenopathy. He underwent CT-guided biopsy on 05/13/2023. He has a history of heavy alcohol use and a longstanding history of tobacco use. Today, he continues to note 8/10 right arm/shoulder pain for which he is being treated with Decadron and IV opioids. He denies right arm weakness, only pain. He has no previous cancer or radiation history. He does not have a pacemaker. Review of Systems as per HPI Past Medical History Past Medical History: COPD, Hyperlipidemia Additional Past Medical History / Comment(s): chronic ankle pain, chronic shoulder pain, chronic back pain History of Any Multi-Drug Resistant Organisms: None Reported Past Surgical History: No Surgical Hx Reported Past Anesthesia/Blood Transfusion Reactions: Unable to Obtain Additional Past Anesthesia/Blood Transfusion Reaction / Comm: Pt has never had surgery. Past Psychological History: No Psychological Hx Reported Additional Psychological History / Comment(s): Pt has a brother staying with him . He has a cane and a walker. He does not drive, he uses the bus system. Smoking Status: Current every day smoker Past Alcohol Use History: None Reported Additional Past Alcohol Use History / Comment(s): Pt started smoking in 1976 and is a ppd smoker. He drinks 10 tallboy beers and sometimes a couple of shots of liqour a day. Past Drug Use History: None Reported - Past Family History Father Family Medical History: No Reported History Additional Family Medical History / Comment(s): Father is healthy Mother Family Medical History: Cancer Additional Family Medical History / Comment(s): Mother of cancer. Medications and Allergies Home Medications Medication Instructions Recorded Confirmed Type No Known Home Medications 05/12/23 05/12/23 History Allergies Allergy/AdvReac Type Severity Reaction Status Date / Time bee venom protein (honey bee) Allergy Swelling Verified 05/12/23 07:36 codeine AdvReac Mild Nausea & Verified 05/12/23 07:36 Vomiting Physical Exam Vitals: Vital Signs Temp Pulse Resp BP Pulse Ox 05/14/23 12:43 112/74 05/14/23 12:15 98.7 F 59 L 17 128/83 96 05/14/23 11:56 97.5 F L 68 12 140/74 96 05/14/23 07:48 98.4 F 71 14 146/71 98 05/14/23 02:00 98.9 F 67 16 131/73 93 L 05/13/23 20:00 98.2 F 76 16 142/73 95 05/13/23 17:53 98.4 F 87 18 119/77 Intake and Output 05/14/23 05/14/23 05/14/23 06:59 14:59 22:59 Other: Voiding Method Toilet Urinal # Voids 1 - Constitutional General appearance: average body habitus, no acute distress (s) - Respiratory Respiratory: negative: prolonged expiration, prolonged inspiration - Neurologic 5/5 strength in left upper extremity, 4/5 strength in right upper extremity - Psychiatric Psychiatric: A&O x's 3, appropriate affect, intact judgment & insight Results CBC & Chem 7: 05/14/23 06:47 05/14/23 06:47 Labs: Abnormal Lab Results - Last 24 Hours (Table) 05/13/23 05/13/23 05/14/23 Range/Units 18:51 18:51 06:47 WBC 12.26 H (4.50-10.00) X 10*3/uL RBC 3.87 L (4.40-5.60) X 10*6/uL Hgb 9.9 L (13.0-17.0) g/dL Hct 31.4 L (39.6-50.0) % MCH 25.6 L (27.0-32.0) pg MCHC 31.5 L (32.0-37.0) g/dL RDW 18.8 H (11.5-14.5) % Monocytes # 1.21 H (0.20-1.00) X 10*3/uL Eosinophils # 1.31 H (0.04-0.35) X 10*3/uL Basophils # 0.13 H (0.00-0.10) X 10*3/uL Retic Count 2.2 H (0.5-2.0) % Sodium (135-145) mmol/L BUN (9.0-27.0) mg/dL Creatinine (0.6-1.5) mg/dL BUN/Creatinine Ratio (12.00-20.00) Ratio Calcium (8.7-10.3) mg/dL Iron 20 L (65-175) UG/DL % Saturation 5.28 L (15.00-50.00) Vitamin B12 1323.0 H (200.0-944.0) pg/mL 05/14/23 Range/Units 06:47 WBC (4.50-10.00) X 10*3/uL RBC (4.40-5.60) X 10*6/uL Hgb (13.0-17.0) g/dL Hct (39.6-50.0) % MCH (27.0-32.0) pg MCHC (32.0-37.0) g/dL RDW (11.5-14.5) % Monocytes # (0.20-1.00) X 10*3/uL Eosinophils # (0.04-0.35) X 10*3/uL Basophils # (0.00-0.10) X 10*3/uL Retic Count (0.5-2.0) % Sodium 134 L (135-145) mmol/L BUN 8.3 L (9.0-27.0) mg/dL Creatinine 0.4 L (0.6-1.5) mg/dL BUN/Creatinine Ratio 20.75 H (12.00-20.00) Ratio Calcium 8.6 L (8.7-10.3) mg/dL Iron (65-175) UG/DL % Saturation (15.00-50.00) Vitamin B12 (200.0-944.0) pg/mL Assessment and Plan Assessment: Mr. Montoya is a 53-year-old male with a right upper lobe mass with invasion of the chest wall in the setting of progressively worsening arm pain. Plan: I explained that his CT imaging is very concerning for a pulmonary malignancy. We are awaiting the biopsy results. Should the biopsy confirm a malignant proce ss, he will require MRI brain and PET/CT upon discharge for staging. This will clarify the appropriate treatment regimen. Otherwise, I am in agreement with supportive measures and pain control. Mike Gomez MD Radiation Oncology Time with Patient: Less than 30
--- NOTE | 2023-05-14 15:26 | P.PN ---
Subjective Progress Note Date: 05/14/23 This is a 53-year-old male patient, a chronic smoker, presented emergency depar tment because of right shoulder and arm pain. The pain is extending from his right posterior shoulder and moves anteriorly to his anterior upper chest area. The pain is constant and gradually got worse over the past 2-3 months. He has chronic cough and congestion and exertional dyspnea in addition. A chest x-ray was done on the time of admission showed a 6 cm mass in the right upper lobe. Based on that, the patient was given a CT can of the chest that showed a 7 cm x 7 cm lobulated heterogeneous mass in the right upper lobe with some cavitation. This mass was extending into the lateral chest wall between the right first and second ribs. Medially, the mass is extending over into the mediastinum and there is also right suprahilar lymphadenopathy. There is also nodular liver contour and hepatomegaly. This is likely presenting cirrhosis. There is also slight irregularities of the left fourth and fifth anterolateral ribs. No hemoptysis. The daughter describes 11.7 with a hemoglobin of 9.8. BUN is at 6 with a creatinine of 0.39 and a sodium level is at 134 and a potassium level of 3.8. Serum alcohol level at time of admission was 196. UA is negative. The patient is known to have history of alcoholism and he drinks alcohol on a daily basis. Is known to have COPD. Is a chronic smoker. His previous reduction is also screen positive for marijuana. On 05/13/2023, the patient is stable. The patient would undergo a percutaneous biopsy of the right upper lobe mass with interventional radiology. White cell count 11.5, hemoglobin is at 10.2, BUN is at 7.5 with a creatinine of 0.5 and a sodium level is 136. The patient is hemodynamically stable and the patient is currently on room air oxygen with a pulse ox 94%. The patient is receiving pain control. He is currently on Dilaudid for pain control and [place] on a when necessary basis. On 05/14/2020, the patient is still having some shoulder pain and the pain is under better control for now. A fine-needle aspirate of the right upper lobe mass was done by interventional radiology. The pathology still pending for now. Meanwhile, the patient has no signs of any delirium tremens. The patient was seen by oncology. The patient is currently on Decadron 4 mg 3 times a day. He is also receiving morphine 4 mg IV every 4 hours for pain control. There is in combination with Dilaudid. He is on heparin subcu for DVT prophylaxis. He was also seen by radiation oncology and the patient will need an outpatient MRI and PET/CT and patient was also seen by medical oncology. Further treatment is pending final pathologic outcome. Objective - Vital Signs Vital signs: Vital Signs Temp 98.7 F 05/14/23 12:15 Pulse 59 L 05/14/23 12:15 Resp 17 05/14/23 12:15 BP 112/74 05/14/23 12:43 Pulse Ox 96 05/14/23 12:15 FiO2 Intake & Output 05/13/23 05/14/23 05/14/23 18:59 06:59 18:59 Other: Voiding Method Urinal Toilet Toilet Urinal Urinal # Voids 2 1 - Exam General: Nontoxic, no distress and appears stated age. Disheveled appearance. Poor hygienic condition. His body mass index is 21 Derm: Skin warm and dry, normal coloration for ethnicity. Head: Atraumatic, normocephalic and symmetric. Eyes: EOMs intact, no lid lag, and anicteric sclera Mouth: no lip lesions, mucus membranes moist Cardiovascular: regular rate and rhythm with normal S1S2, no murmur, positive posterior tibial pulses bilaterally, and cap refill < 2 seconds. Lungs: Respirations even, regular, and unlabored on room air. Lungs CTA bilaterally, no rhonchi, no rales, no wheezing, and no accessory muscle usage. Coarse cough present upon assessment. Abdominal: soft, nontender to palpation, no guarding, no appreciable organomegaly Ext: ROM intact. No gross muscle atrophy, no edema, no contractures Neuro: Speech clear, face symmetrical and CN II-XII grossly intact with no noted focal neuro deficits Psych: Alert and oriented to person, place, time, and situation. Appropriate and pleasant affect. - Labs CBC & Chem 7: 05/14/23 06:47 05/14/23 06:47 Labs: Abnormal Lab Results - Last 24 Hours (Table) 05/13/23 05/13/23 05/14/23 Range/Units 18:51 18:51 06:47 WBC 12.26 H (4.50-10.00) X 10*3/uL RBC 3.87 L (4.40-5.60) X 10*6/uL Hgb 9.9 L (13.0-17.0) g/dL Hct 31.4 L (39.6-50.0) % MCH 25.6 L (27.0-32.0) pg MCHC 31.5 L (32.0-37.0) g/dL RDW 18.8 H (11.5-14.5) % Monocytes # 1.21 H (0.20-1.00) X 10*3/uL Eosinophils # 1.31 H (0.04-0.35) X 10*3/uL Basophils # 0.13 H (0.00-0.10) X 10*3/uL Retic Count 2.2 H (0.5-2.0) % Sodium (135-145) mmol/L BUN (9.0-27.0) mg/dL Creatinine (0.6-1.5) mg/dL BUN/Creatinine Ratio (12.00-20.00) Ratio Calcium (8.7-10.3) mg/dL Iron 20 L (65-175) UG/DL % Saturation 5.28 L (15.00-50.00) Vitamin B12 1323.0 H (200.0-944.0) pg/mL 05/14/23 Range/Units 06:47 WBC (4.50-10.00) X 10*3/uL RBC (4.40-5.60) X 10*6/uL Hgb (13.0-17.0) g/dL Hct (39.6-50.0) % MCH (27.0-32.0) pg MCHC (32.0-37.0) g/dL RDW (11.5-14.5) % Monocytes # (0.20-1.00) X 10*3/uL Eosinophils # (0.04-0.35) X 10*3/uL Basophils # (0.00-0.10) X 10*3/uL Retic Count (0.5-2.0) % Sodium 134 L (135-145) mmol/L BUN 8.3 L (9.0-27.0) mg/dL Creatinine 0.4 L (0.6-1.5) mg/dL BUN/Creatinine Ratio 20.75 H (12.00-20.00) Ratio Calcium 8.6 L (8.7-10.3) mg/dL Iron (65-175) UG/DL % Saturation (15.00-50.00) Vitamin B12 (200.0-944.0) pg/mL Assessment and Plan Plan: Right upper lobe mass measuring 7 x 7 cm in size infiltrating the chest wall be tween the first and second on the right and extending into the mediastinum and there is evidence of a right suprahilar lymphadenopathy. Findings are highly suspicious for malignancy. Consider squamous cell carcinoma based on the presence of some central cavitation. Infection suggest tuberculosis infection is felt to be less likely. Note that his prior chest x-ray from 10/13/2022 showed a 3 cm mass in the right upper lobe and the patient failed to follow-up on the subnormality. Right shoulder/chest wall pain secondary to above COPD Hypertension Acid reflux History of chronic smoking History of alcoholism, the patient has a long history of alcoholism and alcohol abuse and he was in acute alcohol intoxication at time of admission. Normocytic anemia Previous hospitalization for alcohol withdrawal Plan Patient has adequate pain control with a combination of Dilaudid and morphine. Patient were completed percutaneous biopsy of the right upper lobe mass, awaiting pathology Pain control Oncology consultation, radiation oncology consultation Continue Librium and Ativan if needed for any signs of delirium tremens Currently on room and oxygen Clonidine for blood pressure control
--- NOTE | 2023-05-14 21:23 | P.PN ---
Subjective Progress Note Date: 05/14/23 Principal diagnosis: lung mass In f/u pt cont ot have c/o rt shoulder pain, nothing has helped very much to control it. He has not had fever, nausea, new cough, chest pain, abd pain, Objective - Vital Signs Vital signs: Vital Signs Temp 98.7 F 05/14/23 12:15 Pulse 59 L 05/14/23 12:15 Resp 17 05/14/23 12:15 BP 112/74 05/14/23 12:43 Pulse Ox 96 05/14/23 12:15 FiO2 Intake & Output 05/13/23 05/14/23 05/14/23 18:59 06:59 18:59 Other: Voiding Method Urinal Toilet Toilet Urinal Urinal # Voids 2 1 - Constitutional General appearance: Present: average body habitus, cooperative, mild distress - EENT Eyes: Present: anicteric sclerae, EOMI ENT: Present: hearing grossly normal - Respiratory Respiratory: right: diminished, left: CTA - Cardiovascular Rhythm: regular - Peripheral edema leg Peripheral Edema: bilateral: None - Neurologic Neurologic: Present: CNII-XII intact - Musculoskeletal Musculoskeletal Comment(s): RUE resistant to movement 2/2 pain Musculoskeletal: Present: generalized weakness - Psychiatric Psychiatric: Present: A&O x's 3, appropriate affect, intact judgment & insight - Labs CBC & Chem 7: 05/14/23 06:47 05/14/23 06:47 Labs: Abnormal Lab Results - Last 24 Hours (Table) 05/13/23 05/13/23 05/13/23 Range/Units 07:03 07:03 18:51 WBC 11.58 H (4.50-10.00) X 10*3/uL RBC 4.01 L (4.40-5.60) X 10*6/uL Hgb 10.2 L (13.0-17.0) g/dL Hct 32.2 L (39.6-50.0) % MCH 25.4 L (27.0-32.0) pg MCHC 31.7 L (32.0-37.0) g/dL RDW 18.9 H (11.5-14.5) % Eosinophils # 1.15 H (0.04-0.35) X 10*3/uL Basophils # 0.14 H (0.00-0.10) X 10*3/uL Retic Count 2.2 H (0.5-2.0) % BUN 7.5 L (9.0-27.0) mg/dL Creatinine 0.5 L (0.6-1.5) mg/dL Iron (65-175) UG/DL % Saturation (15.00-50.00) Vitamin B12 (200.0-944.0) pg/mL 05/13/23 Range/Units 18:51 WBC (4.50-10.00) X 10*3/uL RBC (4.40-5.60) X 10*6/uL Hgb (13.0-17.0) g/dL Hct (39.6-50.0) % MCH (27.0-32.0) pg MCHC (32.0-37.0) g/dL RDW (11.5-14.5) % Eosinophils # (0.04-0.35) X 10*3/uL Basophils # (0.00-0.10) X 10*3/uL Retic Count (0.5-2.0) % BUN (9.0-27.0) mg/dL Creatinine (0.6-1.5) mg/dL Iron 20 L (65-175) UG/DL % Saturation 5.28 L (15.00-50.00) Vitamin B12 1323.0 H (200.0-944.0) pg/mL Assessment and Plan (1) Intractable pain Current Visit: Yes Status: Acute Priority: High Code(s): R52 - PAIN, UNSPECIFIED SNOMED Code(s): 90483651 (2) Mass of right lung Current Visit: Yes Status: Acute Priority: High Code(s): R91.8 - OTHER NONSPECIFIC ABNORMAL FINDING OF LUNG FIELD SNOMED Code(s): 452938819 Plan: Intractable pain, large right lung mass -7 cm lung mass right upper lobe. -Likely underlying cause of patient's right shoulder pain that is radiating down his arms -Patient is status post biopsy with Pulmonary, pathology pending -Cont current analgesics. Added steroids and lidoderm. -Rad Onc has seen pt Hypochromic anemia -Anemia workup ordered along with nutritional labs for patient's history of EtOH showing iron deficiency, IV iron ordered. -Hgb stable today, no transfusion needed, transfuse for hemoglobin less than 7 attests: I have seen and examined patient, performed H&P, developed imp ression and plan of care. Discussed with dictator. Agree with documentation, dictated as a scribe.
--- NOTE | 2023-05-14 21:52 | PN ---
PROGRESS NOTE DATE OF SERVICE: 05/14/2023 SUBJECTIVE: This is a 53-year-old gentleman, who was admitted with multiple medical issues including a possible right upper lobe mass lesion, also had severe pain. The patient had a lung biopsy done. The final reports are pending at this time. Dr. Hendricks is also concerned about tuberculosis because of the patient's incarceration history. Infectious Disease will be consulted. I would also recommend to repeat chest x-ray. Pain medications are also being altered. PAST MEDICAL HISTORY: Reviewed. REVIEW OF SYSTEMS: Fourteen-point review is negative except as mentioned earlier. CURRENT MEDICATIONS: Reviewed include: 1. Librium. 2. [place]. Doses and rest of the medications are reviewed. PHYSICAL EXAMINATION: VITAL SIGNS: Pulse 59, blood pressure 130/88, respirations 17. HEENT: Conjunctivae are normal. NECK: No jugular venous distention. CARDIOVASCULAR: S1 and S2. RESPIRATORY: Few scattered rhonchi. ABDOMEN: Soft. Nontender. NERVOUS SYSTEM: No focal deficits. LABORATORY DATA: WBC 12.6. Other labs are noted. ASSESSMENT: 1. Right upper lobe lung mass lesion with possible malignancy with right shoulder pain, possibly Pancoast syndrome, rule out infection such as tuberculosis. 2. EtOH withdrawal and acute delirium tremens. 3. Severe pain. 4. Hypertension. 5. Chronic obstructive pulmonary disease. 6. Hyperlipidemia. 7. Increased WBC. 8. Anemia, multifactorial. RECOMMENDATIONS: Recommend to continue current medications. Continue symptomatic treatment. Otherwise, I would recommend repeat chest x-ray and repeat labs. I would increase the pain medications and add Toradol. Guarded prognosis because of multiple complex medical issues. Further recommendations to follow. See orders for details. MMODL / IJN: [id number] /
[2023-05-15] MEDS: MORPHINE SULFATE 4 MG/ML SYRINGE IV PRN (01:11)
[2023-05-15] MEDS: KETOROLAC 15 MG/ML 1 ML VIAL IVP SCH ×4 (05:45→23:29)
[2023-05-15] MEDS: SODIUM FERRIC GLUCONAT-SUCROSE 125 MG in SODIUM CHLORIDE 0.9% 100 ML IVPB SCH (08:46)
[2023-05-15] MEDS: HEPARIN SODIUM,PORCINE 5,000 UNIT/ML 1 ML VIAL SQ SCH ×2 (08:46→20:47)
[2023-05-15] MEDS: PANTOPRAZOLE 40 MG/10 ML VIAL IVP SCH ×2 (08:46→20:47)
[2023-05-15] MEDS: dexAMETHasone 4 MG TAB PO SCH ×3 (08:46→20:47)
[2023-05-15] MEDS: cloNIDine HCL 0.1 MG TAB PO SCH ×2 (08:46→20:47)
[2023-05-15] MEDS: LIDOCAINE 5% PATCH TOPICAL SCH (08:47)
[2023-05-15] MEDS: THIAMINE 100 MG TAB PO SCH (08:49)
--- NOTE | 2023-05-15 08:51 | P.CONS ---
History of Present Illness - Reason for Consult Consult date: 05/14/23 Right lung mass question of TB Requesting physician: Soha Marr - Chief Complaint Right shoulder and right upper chest pain x few days - History of Present Illness Patient is a 53-year-old male with a past medical history significant for COPD hyperlipidemia current everyday smoker presenting to the hospital 3 days ago for evaluation of right shoulder and upper arm pain symptom has been getting worse for almost a month or 2 patient denies any history of any trauma or any fall or any weakness patient also complaining of some pain to the right upper chest area that is moderate intensity without any radiation he did have a cough mild not bringing up any sputum no hemoptysis denies any nausea vomiting no night sweat or fever no abdominal pain and no diarrhea patient on presentation to the hospital was afebrile and no fever have recorded subsequently patient was not tachycardic hypotensive or hypoxic work-up revealed the patient did have vital of 11.7 which is slightly up to 12.26 today creatinine 0.39 AST is mildly elevated urine has been negative serum alcohol 196 patient did have a chest x-ray centimeter mass and surrounding opacity in the right upper lobe increased since the prior question of malignancy CT of the chest did shows heterogeneous mass in the right upper lobe with some cavitation extend lateral to the chest wall between the first and second ribs and evidence of adenopathy concerning for malignancy patient is status post CT-guided biopsy of this mass done by IR infectious disease was consulted today with concern for possible TB, as mentioned earlier the patient denies any history of purulent sputum hemoptysis no night sweats or weight loss he did mention that he did have a previous skin test for TB that was negative however the patient is symptom is not very clear why he has to go for a skin test for TB Review of Systems Positive point and negatives has been mentioned in the HPI, complete review of systems was performed and all other systems are negative Past Medical History Past Medical History: COPD, Hyperlipidemia Additional Past Medical History / Comment(s): chronic ankle pain, chronic shoulder pain, chronic back pain History of Any Multi-Drug Resistant Organisms: None Reported Past Surgical History: No Surgical Hx Reported Past Anesthesia/Blood Transfusion Reactions: Unable to Obtain Additional Past Anesthesia/Blood Transfusion Reaction / Comm: Pt has never had surgery. Past Psychological History: No Psychological Hx Reported Additional Psychological History / Comment(s): Pt has a brother staying with him. He has a cane and a walker. He does not drive, he uses the bus system. Smoking Status: Current every day smoker Past Alcohol Use History: None Reported Additional Past Alcohol Use History / Comment(s): Pt started smoking in 1976 and is a ppd smoker. He drinks 10 tallboy beers and sometimes a couple of shots of liqour a day. Past Drug Use History: None Reported - Past Family History Father Family Medical History: No Reported History Additional Family Medical History / Comment(s): Father is healthy Mother Family Medical History: Cancer Additional Family Medical History / Comment(s): Mother of cancer. Medications and Allergies Home Medications Medication Instructions Recorded Confirmed Type No Known Home Medications 05/12/23 05/12/23 History Allergies Allergy/AdvReac Type Severity Reaction Status Date / Time bee venom protein (honey bee) Allergy Swelling Verified 05/12/23 07:36 codeine AdvReac Mild Nausea & Verified 05/12/23 07:36 Vomiting Physical Exam Vitals: Vital Signs Temp Pulse Resp BP Pulse Ox 05/14/23 12:43 112/74 05/14/23 12:15 98.7 F 59 L 17 128/83 96 05/14/23 11:56 97.5 F L 68 12 140/74 96 05/14/23 07:48 98.4 F 71 14 146/71 98 05/14/23 02:00 98.9 F 67 16 131/73 93 L 05/13/23 20:00 98.2 F 76 16 142/73 95 05/13/23 17:53 98.4 F 87 18 119/77 05/13/23 13:34 98.5 F 79 18 149/76 94 L Intake and Output 05/13/23 05/14/23 05/14/23 22:59 06:59 14:59 Other: Voiding Method Toilet Toilet Urinal Urinal # Voids 2 1 GENERAL DESCRIPTION: Middle-aged male up in bed, no distress. No tachypnea or accessory muscle of respiration use. HEENT: Shows Pallor , no scleral icterus. Oral mucous membrane is dry. No pharyngeal erythema or thrush NECK: Trachea central, no thyromegaly. LUNGS: Unlabored breathing. Coarse breath sounds bilaterally. HEART: S1, S2, regular rate and rhythm. No loud murmur ABDOMEN: Soft, no tenderness , EXTREMITIES: No edema of feet. SKIN: No rash, no masses palpable. NEUROLOGICAL: The patient is awake, alert, oriented x3, mood and affect normal. Results CBC & Chem 7: 05/15/23 06:49 05/15/23 06:49 Labs: Abnormal Lab Results - Last 24 Hours (Table) 05/13/23 05/13/23 05/13/23 Range/Units 07:03 07:03 18:51 WBC 11.58 H (4.50-10.00) X 10*3/uL RBC 4.01 L (4.40-5.60) X 10*6/uL Hgb 10.2 L (13.0-17.0) g/dL Hct 32.2 L (39.6-50.0) % MCH 25.4 L (27.0-32.0) pg MCHC 31.7 L (32.0-37.0) g/dL RDW 18.9 H (11.5-14.5) % Monocytes # (0.20-1.00) X 10*3/uL Eosinophils # 1.15 H (0.04-0.35) X 10*3/uL Basophils # 0.14 H (0.00-0.10) X 10*3/uL Retic Count 2.2 H (0.5-2.0) % BUN 7.5 L (9.0-27.0) mg/dL Creatinine 0.5 L (0.6-1.5) mg/dL Iron (65-175) UG/DL % Saturation (15.00-50.00) Vitamin B12 (200.0-944.0) pg/mL 05/13/23 05/14/23 Range/Units 18:51 06:47 WBC 12.26 H (4.50-10.00) X 10*3/uL RBC 3.87 L (4.40-5.60) X 10*6/uL Hgb 9.9 L (13.0-17.0) g/dL Hct 31.4 L (39.6-50.0) % MCH 25.6 L (27.0-32.0) pg MCHC 31.5 L (32.0-37.0) g/dL RDW 18.8 H (11.5-14.5) % Monocytes # 1.21 H (0.20-1.00) X 10*3/uL Eosinophils # 1.31 H (0.04-0.35) X 10*3/uL Basophils # 0.13 H (0.00-0.10) X 10*3/uL Retic Count (0.5-2.0) % BUN (9.0-27.0) mg/dL Creatinine (0.6-1.5) mg/dL Iron 20 L (65-175) UG/DL % Saturation 5.28 L (15.00-50.00) Vitamin B12 1323.0 H (200.0-944.0) pg/mL Assessment and Plan (1) Cavitating mass in upper lobe of lung Status: Acute Code(s): J98.4 - OTHER DISORDERS OF LUNG SNOMED Code(s): 905884880 Plan: 1patient presented to hospital with a right-sided shoulder and chest pain in this patient noted to have a right upper lobe cavitary lesion high clinical suspicious for malignancy underlying infection such as TB less likely but not entirely excluded 2-we will check inflammatory markers and check QuantiFERON TB Gold test 3-we will wait for the lung biopsy results to be finalized 4-no need to start anti-TB medication empirically We will follow on clinical condition and cultures to further adjust medication if needed Thank you for this consultation we will follow the patient along with you Dictation was produced using [employer] dictation software. please excuse any gramma tical, word or spelling errors. Time with Patient: Greater than 30
[2023-05-15 11:00] LABS: Basophils # (A) 0.03 X 10*3/uL (0.00-0.10); Basophils % (A) 0.2 %; Eosinophils # (A) 0.04 X 10*3/uL (0.04-0.35); Eosinophils % (A) 0.3 %; HCT 31.4 % (39.6-50.0); Lymphocytes # (A) 0.99 X 10*3/uL (0.90-5.00); Lymphocytes % (A) 6.4 %; MCH 25.8 pg (27.0-32.0); MCHC 31.8 g/dL (32.0-37.0); MCV 80.9 FL (80.0-97.0); Mean Platelet Volume 10.3 FL (9.5-12.2); Monocytes # (A) 1.26 X 10*3/uL (0.20-1.00); Monocytes % (A) 8.1 %; NRBC Per 100 WBC 0 X 10*3/uL (0.00-0.01); Neutrophils # (A) 13.07 X 10*3/uL (1.80-7.70); Neutrophils % (A) 84.1 %; Platelet Count 234 X 10*3/uL (140-440); RBC 3.88 X 10*6/uL (4.40-5.60); RDW 18.9 % (11.5-14.5); WBC 15.53 X 10*3/uL (4.50-10.00)
[2023-05-15] MEDS: HYDROmorphone 0.5 MG/0.5 ML SYRINGE IVP PRN ×3 (11:01→20:48)
[2023-05-15 11:37] LABS: ALT 30 U/L (10-49); AST 39 U/L (14-35); Albumin 3.5 g/dL (3.8-4.9); Albumin/Globulin Ratio 1.09 Ratio (1.60-3.17); Alkaline Phosphatase 142 U/L (41-126); BUN/Creat Ratio 18.83 Ratio (12.00-20.00); Blood Urea Nitrogen 11.3 mg/dL (9.0-27.0); Carbon Dioxide 25.4 mmol/L (21.6-31.8); Chloride 96 mmol/L (96-109); Globulin 3.2 g/dL (1.6-3.3); Glucose 173 mg/dL (70-110); Potassium 4.2 mmol/L (3.5-5.5); Sodium 132 mmol/L (135-145); Total Bilirubin 0.7 mg/dL (0.3-1.2); Total Protein 6.7 g/dL (6.2-8.2)
--- NOTE | 2023-05-15 13:05 | P.PN ---
Subjective Progress Note Date: 05/15/23 Principal diagnosis: Reason for follow up is right upper lobe cavitary lesion with a question of pneumonia/TB Patient is a 53-year-old male with a past medical history significant for COPD hyperlipidemia current everyday smoker presenting to the hospital for evaluation of right shoulder and the right upper chest pain patient did have workup with evidence of cavitating right upper lobe lesion status post CT-guided biopsy. On today's evaluation that is05/15/2023, the patient denies any fever or chills, the patient is breathing comfortably on room air and no need for any supplemental oxygen the patient chest pain is controlled with the current medication and denies any cough or sputum production no hemoptysis, patient denies nausea/vomiting, no abdominal pain, and no diarrhea . Patient did have a white count of 15.53, creatinine 0.6, CRP 1.0, procalcitonin 0.14 sed rate of 74 Objective - Vital Signs Vital signs: Vital Signs Temp 98 F 05/15/23 07:43 Pulse 60 05/15/23 07:43 Resp 12 05/15/23 07:43 BP 109/80 05/15/23 07:43 Pulse Ox 99 05/15/23 07:43 FiO2 Intake & Output 05/14/23 05/15/23 05/15/23 18:59 06:59 18:59 Intake Total 100 900 Output Total 175 Balance 100 900 -175 Intake: Intake, IV Titration 100 Amount Sodium Ferric Gluconat- 100 Sucrose 125 mg In Sodium Chloride 0.9% 100 ml @ 100 mls/hr IVPB DAILY [facility] Rx#:[id number] Oral 900 Output: Urine 175 Other: Voiding Method Toilet Toilet Urinal Urinal # Voids 4 3 1 - Exam GENERAL DESCRIPTION: Middle-age male lying in bed in no distress RESPIRATORY SYSTEM: Unlabored breathing , clear to auscultation anteriorly HEART: S1 S2 regular rate and rhythm , ABDOMEN: Soft , no tenderness EXTREMITIES: No edema feet - Labs CBC & Chem 7: 05/15/23 06:49 05/15/23 06:49 Labs: Abnormal Lab Results - Last 24 Hours (Table) 05/14/23 05/14/23 05/14/23 Range/Units 06:47 06:47 06:47 WBC 12.26 H (4.50-10.00) X 10*3/uL RBC 3.87 L (4.40-5.60) X 10*6/uL Hgb 9.9 L (13.0-17.0) g/dL Hct 31.4 L (39.6-50.0) % MCH 25.6 L (27.0-32.0) pg MCHC 31.5 L (32.0-37.0) g/dL RDW 18.8 H (11.5-14.5) % Monocytes # 1.21 H (0.20-1.00) X 10*3/uL Eosinophils # 1.31 H (0.04-0.35) X 10*3/uL Basophils # 0.13 H (0.00-0.10) X 10*3/uL ESR 74 H (0-20) mm/Hr Sodium 134 L (135-145) mmol/L BUN 8.3 L (9.0-27.0) mg/dL Creatinine 0.4 L (0.6-1.5) mg/dL BUN/Creatinine Ratio 20.75 H (12.00-20.00) Ratio Calcium 8.6 L (8.7-10.3) mg/dL C-Reactive Protein (0.00-0.80) mg/dL Procalcitonin (0.02-0.09) ng/mL 05/14/23 05/14/23 Range/Units 06:47 06:47 WBC (4.50-10.00) X 10*3/uL RBC (4.40-5.60) X 10*6/uL Hgb (13.0-17.0) g/dL Hct (39.6-50.0) % MCH (27.0-32.0) pg MCHC (32.0-37.0) g/dL RDW (11.5-14.5) % Monocytes # (0.20-1.00) X 10*3/uL Eosinophils # (0.04-0.35) X 10*3/uL Basophils # (0.00-0.10) X 10*3/uL ESR (0-20) mm/Hr Sodium (135-145) mmol/L BUN (9.0-27.0) mg/dL Creatinine (0.6-1.5) mg/dL BUN/Creatinine Ratio (12.00-20.00) Ratio Calcium (8.7-10.3) mg/dL C-Reactive Protein 1.00 H (0.00-0.80) mg/dL Procalcitonin 0.14 H (0.02-0.09) ng/mL Assessment and Plan (1) Cavitating mass in upper lobe of lung Current Visit: Yes Status: Acute Code(s): J98.4 - OTHER DISORDERS OF LUNG SNOMED Code(s): 392055829 Plan: 1patient presented to hospital with a right-sided shoulder and chest pain in this patient noted to have a right upper lobe cavitary lesion high clinical suspicious for malignancy underlying infection such as TB less likely but not entirely excluded 2-patient did have mildly elevated inflammatory markers , QuantiFERON TB Gold test is currently pending 3-we will wait for the lung biopsy results to be finalized 4leukocytosis is more likely steroid related and will be monitored closely off antibiotics Dictation was produced using [employer] dictation software. please excuse any grammatical, word or spelling errors. Time with Patient: Less than 30
[2023-05-15] MEDS: FOLIC ACID 1 MG TAB PO SCH (13:22)
[2023-05-15] MEDS: MULTIVITAMINS, THERA 1 EACH TAB PO SCH (13:22)
--- NOTE | 2023-05-15 13:22 | P.PN ---
Subjective Progress Note Date: 05/15/23 This is a 53-year-old male patient, a chronic smoker, presented emergency depar tment because of right shoulder and arm pain. The pain is extending from his right posterior shoulder and moves anteriorly to his anterior upper chest area. The pain is constant and gradually got worse over the past 2-3 months. He has chronic cough and congestion and exertional dyspnea in addition. A chest x-ray was done on the time of admission showed a 6 cm mass in the right upper lobe. Based on that, the patient was given a CT can of the chest that showed a 7 cm x 7 cm lobulated heterogeneous mass in the right upper lobe with some cavitation. This mass was extending into the lateral chest wall between the right first and second ribs. Medially, the mass is extending over into the mediastinum and there is also right suprahilar lymphadenopathy. There is also nodular liver contour and hepatomegaly. This is likely presenting cirrhosis. There is also slight irregularities of the left fourth and fifth anterolateral ribs. No hemoptysis. The daughter describes 11.7 with a hemoglobin of 9.8. BUN is at 6 with a creatinine of 0.39 and a sodium level is at 134 and a potassium level of 3.8. Serum alcohol level at time of admission was 196. UA is negative. The patient is known to have history of alcoholism and he drinks alcohol on a daily basis. Is known to have COPD. Is a chronic smoker. His previous reduction is also screen positive for marijuana. On 05/13/2023, the patient is stable. The patient would undergo a percutaneous biopsy of the right upper lobe mass with interventional radiology. White cell count 11.5, hemoglobin is at 10.2, BUN is at 7.5 with a creatinine of 0.5 and a sodium level is 136. The patient is hemodynamically stable and the patient is currently on room air oxygen with a pulse ox 94%. The patient is receiving pain control. He is currently on Dilaudid for pain control and [place] on a when necessary basis. On 05/14/2020, the patient is still having some shoulder pain and the pain is under better control for now. A fine-needle aspirate of the right upper lobe mass was done by interventional radiology. The pathology still pending for now. Meanwhile, the patient has no signs of any delirium tremens. The patient was seen by oncology. The patient is currently on Decadron 4 mg 3 times a day. He is also receiving morphine 4 mg IV every 4 hours for pain control. There is in combination with Dilaudid. He is on heparin subcu for DVT prophylaxis. He was also seen by radiation oncology and the patient will need an outpatient MRI and PET/CT and patient was also seen by medical oncology. Further treatment is pending final pathologic outcome. On 05/15/2023, no new complaints. The patient's shoulder pain/right anterior chest pain is under better control. The patient is receiving morphine 4 mg on as-needed basis and he has been transitioned to [place] 5/325 every 4 hours on an as-needed basis. He is also on Decadron 4 mg by mouth 3 times a day. No respiratory difficulties. No hemoptysis or pleurisy. Awaiting the pathology from the fine-needle aspirate of the right upper lobe mass. WBC count is 15.3, he was a 10, BUN is 11.6 with a creatinine of 0.6 and his sodium levels of 132. LFTs are normal. He is currently on room air oxygen. Objective - Vital Signs Vital signs: Vital Signs Temp 98 F 05/15/23 07:43 Pulse 60 05/15/23 07:43 Resp 12 05/15/23 07:43 BP 109/80 05/15/23 07:43 Pulse Ox 99 05/15/23 07:43 FiO2 Intake & Output 05/14/23 05/15/23 05/15/23 18:59 06:59 18:59 Intake Total 100 900 Output Total 175 Balance 100 900 -175 Intake: Intake, IV Titration 100 Amount Sodium Ferric Gluconat- 100 Sucrose 125 mg In Sodium Chloride 0.9% 100 ml @ 100 mls/hr IVPB DAILY [facility] Rx#:[id number] Oral 900 Output: Urine 175 Other: Voiding Method Toilet Toilet Urinal Urinal # Voids 4 3 1 - Exam General: Nontoxic, no distress and appears stated age. Disheveled appearance. Poor hygienic condition. His body mass index is 21 Derm: Skin warm and dry, normal coloration for ethnicity. Head: Atraumatic, normocephalic and symmetric. Eyes: EOMs intact, no lid lag, and anicteric sclera Mouth: no lip lesions, mucus membranes moist Cardiovascular: regular rate and rhythm with normal S1S2, no murmur, positive posterior tibial pulses bilaterally, and cap refill < 2 seconds. Lungs: Respirations even, regular, and unlabored on room air. Lungs CTA bilaterally, no rhonchi, no rales, no wheezing, and no accessory muscle usage. Coarse cough present upon assessment. Abdominal: soft, nontender to palpation, no guarding, no appreciable organomegaly Ext: ROM intact. No gross muscle atrophy, no edema, no contractures Neuro: Speech clear, face symmetrical and CN II-XII grossly intact with no noted focal neuro deficits Psych: Alert and oriented to person, place, time, and situation. Appropriate and pleasant affect. - Labs CBC & Chem 7: 05/15/23 06:49 05/15/23 06:49 Labs: Abnormal Lab Results - Last 24 Hours (Table) 05/14/23 05/14/23 05/14/23 Range/Units 06:47 06:47 06:47 WBC 12.26 H (4.50-10.00) X 10*3/uL RBC 3.87 L (4.40-5.60) X 10*6/uL Hgb 9.9 L (13.0-17.0) g/dL Hct 31.4 L (39.6-50.0) % MCH 25.6 L (27.0-32.0) pg MCHC 31.5 L (32.0-37.0) g/dL RDW 18.8 H (11.5-14.5) % Neutrophils # (1.80-7.70) X 10*3/uL Monocytes # 1.21 H (0.20-1.00) X 10*3/uL Eosinophils # 1.31 H (0.04-0.35) X 10*3/uL Basophils # 0.13 H (0.00-0.10) X 10*3/uL ESR 74 H (0-20) mm/Hr Sodium 134 L (135-145) mmol/L BUN 8.3 L (9.0-27.0) mg/dL Creatinine 0.4 L (0.6-1.5) mg/dL BUN/Creatinine Ratio 20.75 H (12.00-20.00) Ratio Calcium 8.6 L (8.7-10.3) mg/dL C-Reactive Protein (0.00-0.80) mg/dL Procalcitonin (0.02-0.09) ng/mL 05/14/23 05/14/23 05/15/23 Range/Units 06:47 06:47 06:49 WBC 15.53 H (4.50-10.00) X 10*3/uL RBC 3.88 L (4.40-5.60) X 10*6/uL Hgb 10.0 L (13.0-17.0) g/dL Hct 31.4 L (39.6-50.0) % MCH 25.8 L (27.0-32.0) pg MCHC 31.8 L (32.0-37.0) g/dL RDW 18.9 H (11.5-14.5) % Neutrophils # 13.07 H (1.80-7.70) X 10*3/uL Monocytes # 1.26 H (0.20-1.00) X 10*3/uL Eosinophils # (0.04-0.35) X 10*3/uL Basophils # (0.00-0.10) X 10*3/uL ESR (0-20) mm/Hr Sodium (135-145) mmol/L BUN (9.0-27.0) mg/dL Creatinine (0.6-1.5) mg/dL BUN/Creatinine Ratio (12.00-20.00) Ratio Calcium (8.7-10.3) mg/dL C-Reactive Protein 1.00 H (0.00-0.80) mg/dL Procalcitonin 0.14 H (0.02-0.09) ng/mL Assessment and Plan Plan: Right upper lobe mass measuring 7 x 7 cm in size infiltrating the chest wall between the first and second on the right and extending into the mediastinum and there is evidence of a right suprahilar lymphadenopathy. Findings are highly suspicious for malignancy. Consider squamous cell carcinoma based on the presence of some central cavitation. Infection suggest tuberculosis infection is felt to be less likely. Note that his prior chest x-ray from 10/13/2022 showed a 3 cm mass in the right upper lobe and the patient failed to follow-up on the subnormality. Right shoulder/chest wall pain secondary to above COPD Hypertension Acid reflux History of chronic smoking History of alcoholism, the patient has a long history of alcoholism and alcohol abuse and he was in acute alcohol intoxication at time of admission. Normocytic anemia Previous hospitalization for alcohol withdrawal Plan Awaiting final pathology from [facility] this is a right upper lobe mass Patient has adequate pain control with a combination of Dilaudid and morphine. The patient was also started on [place] and the lidocaine patch was also applied Patient were completed percutaneous biopsy of the right upper lobe mass, awaiting pathology Pain control Oncology consultation, radiation oncology consultation Continue Librium and Ativan if needed for any signs of delirium tremens Currently on room and oxygen Clonidine for blood pressure control
--- NOTE | 2023-05-15 14:10 | PN ---
PROGRESS NOTE DATE OF SERVICE: 05/15/2023 SUBJECTIVE: This is a 53-year-old gentleman admitted with possible right upper lobe lung cancer and Pancoast syndrome and is closely monitored. The patient has significant pain. No chest pain. No palpitation. PHYSICAL EXAMINATION: VITAL SIGNS: Pulse 62, blood pressure 140/70, respirations 12. HEENT: Conjunctivae are normal. CARDIOVASCULAR: S1 and S2. RESPIRATORY: Breath sounds diminished at the bases. Few scattered rhonchi. ABDOMEN: Soft. NERVOUS SYSTEM: Nonfocal. EXTREMITIES: Bilateral finger clubbing present. LABORATORY DATA: Reviewed. ASSESSMENT: 1. Right upper lobe lung mass lesion with possible malignancy and right shoulder pain, possibly Pancoast syndrome. Rule out infection such as tuberculosis. 2. EtOH withdrawal and acute delirium tremens. 3. Severe pain. 4. Hypertension. 5. Chronic obstructive pulmonary disease. 6. Hyperlipidemia. 7. Multiple complex medical issues. RECOMMENDATIONS: Recommend to continue current medications. Continue symptomatic treatment. The patient is on lidocaine patch. The pain is slightly better. We will closely monitor with multiple consultants. Await biopsy report. Further recommendations to follow. MMODL / IJN: [id number] /
--- NOTE | 2023-05-15 14:53 | P.GSCN ---
History of Present Illness Consult date: 05/15/23 Reason for Consult: Right apical lung mass, high suspicion for malignancy Requesting physician: Mike Gomez History of present illness: This is a 53-year-old gentleman who does not follow with a primary care physician on a regular basis. 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 On 05/11/2023 the patient presented to the emergency department here at [facility] with complaints of right shoulder pain, right arm pain and pain radiating across his chest. He denies any shortness of breath associated with the pain, denies recent weight loss, fever, chills, nausea, vomiting, constipation, cough, hematemesis, hemoptysis, diarrhea, lightheadedness, presyncope or syncope. The patient does report that around a month ago he was getting swelling to his bilateral lower extremities which went away on its own. He reports this pain has been coming and going for about a month to month and a half. He decided to present to the emergency department due to the inability to move his right arm and shoulder at all without having pain. The patient also admits to having night sweats. A chest x-ray was completed which demonstrated an approximately 6 cm mass surrounding the opacity in the right upper lobe. For further evaluation on 05/12/2023 the patient underwent a computed tomography scan of his chest which demonstrated a 7 x 7 x 7 cm lobular mildly heterogeneous mass in the right upper lobe with some cavitation. Extends lateral to the chest wall between the right first and second ribs, medially the mass extends to the mediastinum or contiguous with adenopathy. The findings were worrisome for malignancy. The computed tomography scan also showed nodular liver contour and hepatomegaly, likely cirrhosis, and slight irregularity of the left fourth and fifth anterior lateral ribs. Initial laboratory results showed a WBC count of 11.7, hemoglobin 9.8, hematocrit 30.0, platelets 203, PT 13.4, INR 1.3, PTT 26.6, sodium 134, potassium 3.8, BUN 6, creatinine 0.39, calcium 7.9, glucose 89, magnesium 1.6, AST 131, ALT 42, troponin less than 0.012 and albumin 3.2. Also note his serum alcohol level was 196. Subsequently, due to the findings of the right chest mass intervention radiology was consulted for a CT biopsy right lung. The patient underwent a successful CT guided fine needle aspiration of the right upper lobe lung mass. Pathology remains pending on the fine-needle aspiration. Due to the findings of the right lung mass a consult was placed to cardiothoracic surgery for further evaluation and treatment recommendations. Review of Systems A 14 point review of systems was completed and was negative except as mentioned in the HPI. Past Medical History Past Medical History: COPD, Hyperlipidemia, Hypertension, Osteoarthritis (OA) Additional Past Medical History / Comment(s): chronic ankle pain, chronic shoulder pain, chronic back pain History of Any Multi-Drug Resistant Organisms: None Reported Past Surgical History: No Surgical Hx Reported Past Anesthesia/Blood Transfusion Reactions: Unable to Obtain Additional Past Anesthesia/Blood Transfusion Reaction / Comm: Pt has never had surgery. Past Psychological History: No Psychological Hx Reported Additional Psychological History / Comment(s): Pt has a brother staying with him. He has a cane and a walker. He does not drive, he uses the bus system. Smoking Status: Current every day smoker Past Alcohol Use History: None Reported Additional Past Alcohol Use History / Comment(s): Pt started smoking in 1976 and is a ppd smoker. He drinks 10 tallboy beers and sometimes a couple of shots of liqour a day. Past Drug Use History: None Reported - Past Family History Father Family Medical History: No Reported History Additional Family Medical History / Comment(s): Father is healthy Mother Family Medical History: Cancer (Breast cancer) Additional Family Medical History / Comment(s): Mother of cancer. Medications and Allergies Home Medications Medication Instructions Recorded Confirmed Type No Known Home Medications 05/12/23 05/12/23 History Allergies Allergy/AdvReac Type Severity Reaction Status Date / Time bee venom protein (honey bee) Allergy Swelling Verified 05/12/23 07:36 codeine AdvReac Mild Nausea & Verified 05/12/23 07:36 Vomiting Surgical - Exam Vital Signs Pulse Resp BP Pulse Ox 82 17 134/80 98 05/11/23 23:35 05/11/23 23:35 05/11/23 23:35 11/13/23 23:35 - General Disheveled appearance no distress, no pain, chronically ill - Eyes PERRL, normal ocular movement, no pale, no icteric - ENT normal pinna, normal nares, normal mucosa, no hearing loss, no congestion, poor nursing home - Neck Neck is supple, no lymphadenopathy. no masses, no bruits, trachea midline, no venous distension - Respiratory Lung sounds essentially clear throughout. No wheezes, rhonchi or crackles. Room air oxygen saturations 99%. Respirations are symmetrical and nonlabored. - Cardiovascular Regular rhythm and rate. S1 and S2 present, negative for S3, gallop or murmur. - Abdomen Soft, nontender and nondistended. Active bowel sounds present in all 4 abdominal quadrants. No guarding or rigidity. No organomegaly appreciated. - Genitourinary Deferred - Rectum Deferred - Integumentary Patient does have some enlarged lymph nodes to his bilateral groins and to his left axillary. Skin is warm and dry. No clubbing or cyanosis is present. - Neurologic No focal deficits. normal coordination, normal sensation - Musculoskeletal Strength is equal bilaterally. - Psychiatric oriented to time, oriented to person, oriented to place, speech is normal, memory intact Results - Labs 05/15/23 06:49 05/15/23 06:49 Abnormal Lab Results - Last 24 Hours (Table) 05/14/23 05/14/23 05/14/23 Range/Units 06:47 06:47 06:47 WBC (4.50-10.00) X 10*3/uL RBC (4.40-5.60) X 10*6/uL Hgb (13.0-17.0) g/dL Hct (39.6-50.0) % MCH (27.0-32.0) pg MCHC (32.0-37.0) g/dL RDW (11.5-14.5) % Neutrophils # (1.80-7.70) X 10*3/uL Monocytes # (0.20-1.00) X 10*3/uL ESR 74 H (0-20) mm/Hr Sodium (135-145) mmol/L Glucose (70-110) mg/dL AST (14-35) U/L Alkaline Phosphatase (41-126) U/L C-Reactive Protein 1.00 H (0.00-0.80) mg/dL Albumin (3.8-4.9) g/dL Albumin/Globulin Ratio (1.60-3.17) Ratio Procalcitonin 0.14 H (0.02-0.09) ng/mL 05/15/23 05/15/23 Range/Units 06:49 06:49 WBC 15.53 H (4.50-10.00) X 10*3/uL RBC 3.88 L (4.40-5.60) X 10*6/uL Hgb 10.0 L (13.0-17.0) g/dL Hct 31.4 L (39.6-50.0) % MCH 25.8 L (27.0-32.0) pg MCHC 31.8 L (32.0-37.0) g/dL RDW 18.9 H (11.5-14.5) % Neutrophils # 13.07 H (1.80-7.70) X 10*3/uL Monocytes # 1.26 H (0.20-1.00) X 10*3/uL ESR (0-20) mm/Hr Sodium 132 L (135-145) mmol/L Glucose 173 H (70-110) mg/dL AST 39 H (14-35) U/L Alkaline Phosphatase 142 H (41-126) U/L C-Reactive Protein (0.00-0.80) mg/dL Albumin 3.5 L (3.8-4.9) g/dL Albumin/Globulin Ratio 1.09 L (1.60-3.17) Ratio Procalcitonin (0.02-0.09) ng/mL Diabetes panel 05/15/23 Range/Units 06:49 Sodium 132 L (135-145) mmol/L Potassium 4.2 (3.5-5.5) mmol/L Chloride 96 (96-109) mmol/L Carbon Dioxide 25.4 (21.6-31.8) mmol/L BUN 11.3 (9.0-27.0) mg/dL Creatinine 0.6 (0.6-1.5) mg/dL Glucose 173 H (70-110) mg/dL Calcium 9.0 (8.7-10.3) mg/dL AST 39 H (14-35) U/L ALT 30 (10-49) U/L Alkaline Phosphatase 142 H (41-126) U/L Total Protein 6.7 (6.2-8.2) g/dL Albumin 3.5 L (3.8-4.9) g/dL Calcium panel 05/15/23 Range/Units 06:49 Calcium 9.0 (8.7-10.3) mg/dL Albumin 3.5 L (3.8-4.9) g/dL Pituitary panel 05/15/23 Range/Units 06:49 Sodium 132 L (135-145) mmol/L Potassium 4.2 (3.5-5.5) mmol/L Chloride 96 (96-109) mmol/L Carbon Dioxide 25.4 (21.6-31.8) mmol/L BUN 11.3 (9.0-27.0) mg/dL Creatinine 0.6 (0.6-1.5) mg/dL Glucose 173 H (70-110) mg/dL Calcium 9.0 (8.7-10.3) mg/dL Adrenal panel 05/15/23 Range/Units 06:49 Sodium 132 L (135-145) mmol/L Potassium 4.2 (3.5-5.5) mmol/L Chloride 96 (96-109) mmol/L Carbon Dioxide 25.4 (21.6-31.8) mmol/L BUN 11.3 (9.0-27.0) mg/dL Creatinine 0.6 (0.6-1.5) mg/dL Glucose 173 H (70-110) mg/dL Calcium 9.0 (8.7-10.3) mg/dL Total Bilirubin 0.7 (0.3-1.2) mg/dL AST 39 H (14-35) U/L ALT 30 (10-49) U/L Alkaline Phosphatase 142 H (41-126) U/L Total Protein 6.7 (6.2-8.2) g/dL Albumin 3.5 L (3.8-4.9) g/dL - Imaging Chest x-ray: report reviewed, image reviewed CT scan - chest: report reviewed, image reviewed Assessment and Plan Assessment: Right upper lobe lung mass measuring 7 x 7 x 7 cm in size infiltrating the chest wall between the first and second ribs on the right and extending in to the mediastinum with evidence of right suprahilar lymphadenopathy, pathology from the fine needle aspirate remain pending Right shoulder/chest wall pain likely secondary to above COPD Hypertension GERD Chronic ongoing tobacco dependence Daily EtOH use, drinks a 24 pack of beer per week, alcohol level on admission was 196 Daily marijuana use Normocytic anemia Plan: The patient was seen and examined at his bedside on the fifth floor medical oncology unit. The patient's chart and diagnostics were reviewed. His case was discussed in detail with Dr. Bernie Nixon from cardiothoracic surgery. At this time we will wait for his fine-needle aspirate pathology results to come back with further recommendations to follow. Encourage use of incentive spirometry 10 times every hour while awake. Discussed the importance of risk modification including smoking cessation and moderation in use of his alcohol. Pain control per core when necessary orders. More recommendations to follow based on patient's clinical course. Thank you for this consult and we look for to working with you in the care of this patient. I have personally seen and examined the patient, performed the documentation and the assessment and plan as written. 30 minutes spent on the visit . Patrick MUIR
--- NOTE | 2023-05-15 16:31 | P.PN ---
Subjective Progress Note Date: 05/15/23 Principal diagnosis: lung mass No acute events overnight. Patient reports that he is feeling overall well. Denies shortness of breath. Reports pain is better controlled Objective - Vital Signs Vital signs: Vital Signs Temp 97.7 F 05/15/23 13:37 Pulse 53 L 05/15/23 13:37 Resp 16 05/15/23 13:37 BP 121/65 05/15/23 13:37 Pulse Ox 99 05/15/23 13:37 FiO2 Intake & Output 05/14/23 05/15/23 05/15/23 18:59 06:59 18:59 Intake Total 100 900 Output Total 175 Balance 100 900 -175 Intake: Intake, IV Titration 100 Amount Sodium Ferric Gluconat- 100 Sucrose 125 mg In Sodium Chloride 0.9% 100 ml @ 100 mls/hr IVPB DAILY [facility] Rx#:[id number] Oral 900 Output: Urine 175 Other: Voiding Method Toilet Toilet Toilet Urinal Urinal Urinal # Voids 4 3 1 - Constitutional General appearance: Present: average body habitus, no acute distress - EENT Eyes: Present: anicteric sclerae, EOMI ENT: Present: hearing grossly normal - Respiratory Details: breathing is even and unlabored - Cardiovascular Details: skin warm and dry - Integumentary Integumentary: Absent: cyanotic - Neurologic Neurologic Comment(s): grossly intact - Musculoskeletal Musculoskeletal: Present: strength equal bilaterally - Psychiatric Psychiatric: Present: A&O x's 3 - Labs CBC & Chem 7: 05/15/23 06:49 05/15/23 06:49 Labs: Abnormal Lab Results - Last 24 Hours (Table) 05/14/23 05/14/23 05/14/23 Range/Units 06:47 06:47 06:47 WBC (4.50-10.00) X 10*3/uL RBC (4.40-5.60) X 10*6/uL Hgb (13.0-17.0) g/dL Hct (39.6-50.0) % MCH (27.0-32.0) pg MCHC (32.0-37.0) g/dL RDW (11.5-14.5) % Neutrophils # (1.80-7.70) X 10*3/uL Monocytes # (0.20-1.00) X 10*3/uL ESR 74 H (0-20) mm/Hr Sodium (135-145) mmol/L Glucose (70-110) mg/dL AST (14-35) U/L Alkaline Phosphatase (41-126) U/L C-Reactive Protein 1.00 H (0.00-0.80) mg/dL Albumin (3.8-4.9) g/dL Albumin/Globulin Ratio (1.60-3.17) Ratio Procalcitonin 0.14 H (0.02-0.09) ng/mL 05/15/23 05/15/23 Range/Units 06:49 06:49 WBC 15.53 H (4.50-10.00) X 10*3/uL RBC 3.88 L (4.40-5.60) X 10*6/uL Hgb 10.0 L (13.0-17.0) g/dL Hct 31.4 L (39.6-50.0) % MCH 25.8 L (27.0-32.0) pg MCHC 31.8 L (32.0-37.0) g/dL RDW 18.9 H (11.5-14.5) % Neutrophils # 13.07 H (1.80-7.70) X 10*3/uL Monocytes # 1.26 H (0.20-1.00) X 10*3/uL ESR (0-20) mm/Hr Sodium 132 L (135-145) mmol/L Glucose 173 H (70-110) mg/dL AST 39 H (14-35) U/L Alkaline Phosphatase 142 H (41-126) U/L C-Reactive Protein (0.00-0.80) mg/dL Albumin 3.5 L (3.8-4.9) g/dL Albumin/Globulin Ratio 1.09 L (1.60-3.17) Ratio Procalcitonin (0.02-0.09) ng/mL Assessment and Plan (1) Mass of right lung Current Visit: Yes Status: Acute Priority: High Code(s): R91.8 - OTHER NONSPECIFIC ABNORMAL FINDING OF LUNG FIELD SNOMED Code(s): 643011666 Plan: Intractable pain, large right lung mass -7 cm lung mass right upper lobe. -Likely underlying cause of patient's right shoulder pain that is radiating down his arms -Patient is status post biopsy with Pulmonary, pathology pending -Cont current analgesics. Added steroids and lidoderm -Rad Onc has seen pt Hypochromic anemia -Anemia workup ordered along with nutritional labs for patient's history of EtOH showing iron deficiency, IV iron ordered. -Hgb stable today, no transfusion needed, transfuse for hemoglobin less than 7
[2023-05-16] MEDS: HYDROmorphone 0.5 MG/0.5 ML SYRINGE IVP PRN (00:43)
[2023-05-16] MEDS: KETOROLAC 15 MG/ML 1 ML VIAL IVP SCH (06:03)
[2023-05-16] MEDS: LIDOCAINE 5% PATCH TOPICAL SCH (08:19)
[2023-05-16] MEDS: PANTOPRAZOLE 40 MG/10 ML VIAL IVP SCH (08:19)
[2023-05-16] MEDS: THIAMINE 100 MG TAB PO SCH (08:20)
[2023-05-16] MEDS: FOLIC ACID 1 MG TAB PO SCH (08:20)
[2023-05-16] MEDS: dexAMETHasone 4 MG TAB PO SCH (08:20)
[2023-05-16] MEDS: cloNIDine HCL 0.1 MG TAB PO SCH (08:20)
[2023-05-16] MEDS: MULTIVITAMINS, THERA 1 EACH TAB PO SCH (08:20)
[2023-05-16] MEDS: HEPARIN SODIUM,PORCINE 5,000 UNIT/ML 1 ML VIAL SQ SCH (08:21)
[2023-05-16] MEDS: SODIUM FERRIC GLUCONAT-SUCROSE 125 MG in SODIUM CHLORIDE 0.9% 100 ML IVPB SCH (08:24)
[2023-05-16 08:59] VITALS: BP 137/85; PULSE 48; RESP 18; TEMP 97.6
--- NOTE | 2023-05-16 09:22 | P.PN ---
Subjective Progress Note Date: 05/16/23 Principal diagnosis: Right apical lung mass, high suspicion for malignancy. 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 The patient was seen and examined in follow-up today 05/16/2023 at his bedside on the fifth floor oncology medical unit. He is currently up ambulating in his room, is awake, alert, oriented 3 and is in no acute distress. He is fully dressed and is clothes and is under the assumption that he is being discharged home this morning. He denies any complaints of pain or shortness of breath at this time. Oxygen saturation are 99% on room air. His T-max temperature in the last 24 hours is 99.2F. Fine needle aspirate pathology results from his right upper lobe lung mass remains pending. He reports his pain is much better controlled at this time. Objective - Vital Signs Vital signs: Vital Signs Temp 97.6 F 05/16/23 07:30 Pulse 48 L 05/16/23 07:30 Resp 18 05/16/23 07:30 BP 137/85 05/16/23 07:30 Pulse Ox 98 05/16/23 07:30 FiO2 Intake & Output 05/15/23 05/16/23 05/16/23 18:59 06:59 18:59 Intake Total 800 Output Total 175 Balance -175 800 Intake: Oral 800 Output: Urine 175 Other: Voiding Method Toilet Toilet Urinal Urinal # Voids 1 2 - Exam CONSTITUTIONAL: Appears comfortable, cooperative, no acute distress. RESPIRATORY: Lungs sounds essentially clear throughout. No wheezes, rhonchi or crackles. Respirations are symmetrical, nonlabored. Currently on room air with oxygen saturation 99%. Strong cough. CARDIOVASCULAR: S1, S2 present. Regular rate and rhythm, sinus rhythm on telemetry. Palpable peripheral pulses bilaterally. No edema present. GASTROINTESTINAL: Abdomen soft, nontender, nondistended. Active bowel sounds p resent 4 quadrants. Tolerating diet. Passing flatus. GENITOURINARY: Continues to void clear, yellow urine. INTEGUMENTARY: Skin is warm and dry with no cyanosis. Positive clubbing to bilateral hands. Palpable lymph nodes to his bilateral groins and to his left axilla. Dressing clean, dry and intact was right upper chest. NEUROLOGIC: Cranial nerves II through XII intact. No focal deficits. MUSKULOSKELETAL: Able to move all extremities, strength equal bilaterally, gait normal. PSYCHIATRIC: Alert and oriented to person place and time, appropriate affect, intact judgment and insight - Allied health notes Allied health notes reviewed: nursing - Labs CBC & Chem 7: 05/15/23 06:49 05/15/23 06:49 Labs: Abnormal Lab Results - Last 24 Hours (Table) 05/15/23 05/15/23 Range/Units 06:49 06:49 WBC 15.53 H (4.50-10.00) X 10*3/uL RBC 3.88 L (4.40-5.60) X 10*6/uL Hgb 10.0 L (13.0-17.0) g/dL Hct 31.4 L (39.6-50.0) % MCH 25.8 L (27.0-32.0) pg MCHC 31.8 L (32.0-37.0) g/dL RDW 18.9 H (11.5-14.5) % Neutrophils # 13.07 H (1.80-7.70) X 10*3/uL Monocytes # 1.26 H (0.20-1.00) X 10*3/uL Sodium 132 L (135-145) mmol/L Glucose 173 H (70-110) mg/dL AST 39 H (14-35) U/L Alkaline Phosphatase 142 H (41-126) U/L Albumin 3.5 L (3.8-4.9) g/dL Albumin/Globulin Ratio 1.09 L (1.60-3.17) Ratio Assessment and Plan Assessment: Right upper lobe lung mass measuring 7 x 7 x 7 cm in size infiltrating the chest wall between the first and second ribs on the right and extending in to the mediastinum with evidence of right suprahilar lymphadenopathy, pathology from the fine needle aspirate remain pending Right shoulder/chest wall pain likely secondary to above COPD Hypertension GERD Chronic ongoing tobacco dependence Daily EtOH use, drinks a 24 pack of beer per week, alcohol level on admission was 196 Daily marijuana use Normocytic anemia Plan: Continue to follow surgical fine-needle pathology results. Encourage use of incentive spirometry 10 times every hour while awake. Increase activity as tolerated. Importance of risk modification including smoking cessation and discussed with the patient. Medical management other comorbidities per primary care service, pulmonology and oncology. More recommendations to follow based on patient's clinical course and once it is fine needle pathology results have been obtained. Time with Patient: Less than 30
--- NOTE | 2023-05-16 14:14 | P.PN ---
Subjective Progress Note Date: 05/16/23 This is a 53-year-old male patient, a chronic smoker, presented emergency depar tment because of right shoulder and arm pain. The pain is extending from his right posterior shoulder and moves anteriorly to his anterior upper chest area. The pain is constant and gradually got worse over the past 2-3 months. He has chronic cough and congestion and exertional dyspnea in addition. A chest x-ray was done on the time of admission showed a 6 cm mass in the right upper lobe. Based on that, the patient was given a CT can of the chest that showed a 7 cm x 7 cm lobulated heterogeneous mass in the right upper lobe with some cavitation. This mass was extending into the lateral chest wall between the right first and second ribs. Medially, the mass is extending over into the mediastinum and there is also right suprahilar lymphadenopathy. There is also nodular liver contour and hepatomegaly. This is likely presenting cirrhosis. There is also slight irregularities of the left fourth and fifth anterolateral ribs. No hemoptysis. The daughter describes 11.7 with a hemoglobin of 9.8. BUN is at 6 with a creatinine of 0.39 and a sodium level is at 134 and a potassium level of 3.8. Serum alcohol level at time of admission was 196. UA is negative. The patient is known to have history of alcoholism and he drinks alcohol on a daily basis. Is known to have COPD. Is a chronic smoker. His previous reduction is also screen positive for marijuana. On 05/13/2023, the patient is stable. The patient would undergo a percutaneous biopsy of the right upper lobe mass with interventional radiology. White cell count 11.5, hemoglobin is at 10.2, BUN is at 7.5 with a creatinine of 0.5 and a sodium level is 136. The patient is hemodynamically stable and the patient is currently on room air oxygen with a pulse ox 94%. The patient is receiving pain control. He is currently on Dilaudid for pain control and Schulter on a when necessary basis. On 05/14/2020, the patient is still having some shoulder pain and the pain is under better control for now. A fine-needle aspirate of the right upper lobe mass was done by interventional radiology. The pathology still pending for now. Meanwhile, the patient has no signs of any delirium tremens. The patient was seen by oncology. The patient is currently on Decadron 4 mg 3 times a day. He is also receiving morphine 4 mg IV every 4 hours for pain control. There is in combination with Dilaudid. He is on heparin subcu for DVT prophylaxis. He was also seen by radiation oncology and the patient will need an outpatient MRI and PET/CT and patient was also seen by medical oncology. Further treatment is pending final pathologic outcome. On 05/15/2023, no new complaints. The patient's shoulder pain/right anterior chest pain is under better control. The patient is receiving morphine 4 mg on as-needed basis and he has been transitioned to Schulter 5/325 every 4 hours on an as-needed basis. He is also on Decadron 4 mg by mouth 3 times a day. No respiratory difficulties. No hemoptysis or pleurisy. Awaiting the pathology from the fine-needle aspirate of the right upper lobe mass. WBC count is 15.3, he was a 10, BUN is 11.6 with a creatinine of 0.6 and his sodium levels of 132. LFTs are normal. He is currently on room air oxygen. On 05/17/2023, no new complaints. FNA of the right upper lobe is still pending. The patient was to be discharged home to be followed up with oncology on outpatient basis. He is on room air oxygen. Objective - Vital Signs Vital signs: Vital Signs Temp 97.6 F 05/16/23 07:30 Pulse 48 L 05/16/23 07:30 Resp 18 05/16/23 07:30 BP 137/85 05/16/23 07:30 Pulse Ox 98 05/16/23 07:30 FiO2 Intake & Output 05/15/23 05/16/23 05/16/23 18:59 06:59 18:59 Intake Total 800 Output Total 175 Balance -175 800 Intake: Oral 800 Output: Urine 175 Other: Voiding Method Toilet Toilet Toilet Urinal Urinal Urinal # Voids 1 2 - Exam General: Nontoxic, no distress and appears stated age. Disheveled appearance. Poor hygienic condition. His body mass index is 21 Derm: Skin warm and dry, normal coloration for ethnicity. Head: Atraumatic, normocephalic and symmetric. Eyes: EOMs intact, no lid lag, and anicteric sclera Mouth: no lip lesions, mucus membranes moist Cardiovascular: regular rate and rhythm with normal S1S2, no murmur, positive posterior tibial pulses bilaterally, and cap refill < 2 seconds. Lungs: Respirations even, regular, and unlabored on room air. Lungs CTA bilaterally, no rhonchi, no rales, no wheezing, and no accessory muscle usage. Coarse cough present upon assessment. Abdominal: soft, nontender to palpation, no guarding, no appreciable organomegaly Ext: ROM intact. No gross muscle atrophy, no edema, no contractures Neuro: Speech clear, face symmetrical and CN II-XII grossly intact with no noted focal neuro deficits Psych: Alert and oriented to person, place, time, and situation. Appropriate and pleasant affect. - Labs CBC & Chem 7: 05/15/23 06:49 05/15/23 06:49 Labs: Abnormal Lab Results - Last 24 Hours (Table) 05/15/23 Range/Units 06:49 Sodium 132 L (135-145) mmol/L Glucose 173 H (70-110) mg/dL AST 39 H (14-35) U/L Alkaline Phosphatase 142 H (41-126) U/L Albumin 3.5 L (3.8-4.9) g/dL Albumin/Globulin Ratio 1.09 L (1.60-3.17) Ratio Assessment and Plan Plan: Right upper lobe mass measuring 7 x 7 cm in size infiltrating the chest wall between the first and second on the right and extending into the mediastinum and there is evidence of a right suprahilar lymphadenopathy. Findings are highly suspicious for malignancy. Consider squamous cell carcinoma based on the presence of some central cavitation. Infection suggest tuberculosis infection is felt to be less likely. Note that his prior chest x-ray from 10/13/2022 showed a 3 cm mass in the right upper lobe and the patient failed to follow-up on the subnormality. Right shoulder/chest wall pain secondary to above COPD Hypertension Acid reflux History of chronic smoking History of alcoholism, the patient has a long history of alcoholism and alcohol abuse and he was in acute alcohol intoxication at time of admission. Normocytic anemia Previous hospitalization for alcohol withdrawal Plan Awaiting final pathology from [facility] this is a right upper lobe mass, results are probably sometime next week The patient was also started on Schulter and the lidocaine patch was also applied Pain control Oncology consultation, radiation oncology consultation Currently on room and oxygen Clonidine for blood pressure control To be discharged home today
--- NOTE | 2023-05-16 15:52 | DS ---
DISCHARGE SUMMARY FINAL DIAGNOSES: 1. Right upper lobe lung mass lesion, possibly malignancy. Right shoulder pain, possibly Pancoast syndrome. Rule out infection causes such as tuberculosis. 2. EtOH withdrawal and acute delirium tremens. 3. Severe pain. 4. Hypertension. 5. Chronic obstructive pulmonary disease. 6. Hyperlipidemia. 7. Multiple complex medical issues. DISCHARGE DISPOSITION: The patient left the hospital against medical advice. HISTORY OF PRESENT ILLNESS: This is a 53-year-old gentleman admitted with multiple complex medical issues as mentioned earlier. The patient was treated symptomatically. Pain improved significantly. Sensorium is improved. The patient is not confused anymore. Multiple consultants are following the patient; however, the patient left the hospital against medical advice. The prognosis is extremely guarded because of multiple complex medical issues as mentioned earlier. See orders for the details and see the multiple consultations, progress notes, and staff notes also for further details. MMODL / IJN: [id number] /
--- NOTE | 2023-05-22 14:40 | P.PN ---
Subjective Progress Note Date: 05/16/23 Principal diagnosis: Reason for follow up is right upper lobe cavitary lesion with a question of pneumonia/TB Patient is a 53-year-old male with a past medical history significant for COPD hyperlipidemia current everyday smoker presenting to the hospital for evaluation of right shoulder and the right upper chest pain patient did have workup with evidence of cavitating right upper lobe lesion status post CT-guided biopsy. On today's evaluation that is 05/16/2023, the patient remains to be afebrile, the patient is breathing comfortably on room air, the patient denies shortness of breath, chest pain and no worsening cough or sputum production , patient denies abdominal pain, no nausea/vomiting and no diarrhea has been reported Patient did have a white count of 15.53, creatinine 0.6 as of 05/15/2023, CRP 1.0, procalcitonin 0.14 sed rate of 74 Objective - Vital Signs Vital signs: Vital Signs Temp 97.6 F 05/16/23 07:30 Pulse 48 L 05/16/23 07:30 Resp 18 05/16/23 07:30 BP 137/85 05/16/23 07:30 Pulse Ox 98 05/16/23 07:30 FiO2 Intake & Output 05/15/23 05/16/23 05/16/23 18:59 06:59 18:59 Intake Total 800 Output Total 175 Balance -175 800 Intake: Oral 800 Output: Urine 175 Other: Voiding Method Toilet Toilet Urinal Urinal # Voids 1 2 - Exam GENERAL DESCRIPTION: Middle-age male lying in bed in no distress RESPIRATORY SYSTEM: Unlabored breathing , clear to auscultation anteriorly HEART: S1 S2 regular rate and rhythm , ABDOMEN: Soft , no tenderness EXTREMITIES: No edema feet - Labs CBC & Chem 7: 05/15/23 06:49 05/15/23 06:49 Labs: Abnormal Lab Results - Last 24 Hours (Table) 05/15/23 05/15/23 Range/Units 06:49 06:49 WBC 15.53 H (4.50-10.00) X 10*3/uL RBC 3.88 L (4.40-5.60) X 10*6/uL Hgb 10.0 L (13.0-17.0) g/dL Hct 31.4 L (39.6-50.0) % MCH 25.8 L (27.0-32.0) pg MCHC 31.8 L (32.0-37.0) g/dL RDW 18.9 H (11.5-14.5) % Neutrophils # 13.07 H (1.80-7.70) X 10*3/uL Monocytes # 1.26 H (0.20-1.00) X 10*3/uL Sodium 132 L (135-145) mmol/L Glucose 173 H (70-110) mg/dL AST 39 H (14-35) U/L Alkaline Phosphatase 142 H (41-126) U/L Albumin 3.5 L (3.8-4.9) g/dL Albumin/Globulin Ratio 1.09 L (1.60-3.17) Ratio Assessment and Plan (1) Cavitating mass in upper lobe of lung Status: Acute Code(s): J98.4 - OTHER DISORDERS OF LUNG SNOMED Code(s): 292470337 Plan: 1patient presented to hospital with a right-sided shoulder and chest pain in this patient noted to have a right upper lobe cavitary lesion high clinical suspicious for malignancy underlying infection such as TB less likely but not entirely excluded 2-patient did have mildly elevated inflammatory markers , QuantiFERON TB Gold test is currently pending 3- lung biopsy is suggestive of a necrotic neoplasm insufficient for diagnosis due to Lack of viable lesion material 4leukocytosis is more likely steroid related as no evidence of any infection clinically and no need for any antibiotics on discharge Dictation was produced using [employer] dictation software. please excuse any grammatical, word or spelling errors. Time with Patient: Less than 30
== END 2023-05-16 12:50 | disposition home or self-care (01) ==
LOC: EC 23:17 → INTOOBSV 05-12 06:48 → 5NMEDONC 05-12 06:48 → UNDODISIN 05-16 12:50
PROVIDERS: ADMIT Hospitalist; ATTEND Hospitalist
DX: D38.1 Neoplasm of uncertain behavior of trachea, bronchus and lung (principal); R07.89 Other chest pain; M25.511 Pain in right shoulder; J44.9 Chronic obstructive pulmonary disease, unspecified; F10.231 Alcohol dependence with withdrawal delirium; D50.9 Iron deficiency anemia, unspecified; D72.829 Elevated white blood cell count, unspecified; E78.5 Hyperlipidemia, unspecified; I10 Essential (primary) hypertension; K21.9 Gastro-esophageal reflux disease without esophagitis; G89.29 Other chronic pain; F12.90 Cannabis use, unspecified, uncomplicated; I69.392 Facial weakness following cerebral infarction; F17.210 Nicotine dependence, cigarettes, uncomplicated; Y90.6 Blood alcohol level of 120-199 mg/100 ml; Z88.5 Allergy status to narcotic agent
CPT/HCPCS: 96376 ×6; 96365; 96366 ×2; 96372 ×5; 96375 ×3; 99285; 36415; 93005; 88305; 80053 ×2; 80048 ×2; 85652; 82607; 82728; 82525; 82746; 83540; 83550; 83735; 84484; 85025 ×4; 85610; 85045; 85730; 86140; 81003; 86480; 84145; 71045 ×2; 71046; 93975; 76870; 71260; 32408; G0378 ×5; G0480; J8540 ×3; J2060 ×2; J2270 ×4; J1644 ×5; J2405; J2916 ×3; J1885 ×3; C9113 ×5; J1170 ×5; Q9967; 80320; 96374